=== PATIENT | female | born 1935 | race Caucasian/White ===

== ENCOUNTER 2018-03-19 23:21 | Emergency (ER) | payer MEDICARE, OTHER ==
[~2018-03-19] VITALS: Ht 160 cm; Wt 59.0 kg
[~2018-03-19 23:21] MED LIST: ASPI-484 PO; AZAT50TA PO; BUDE10.2 IH; CARV12.5 PO; DIGO125T PO; GABA100C7 PO; LEVO50TA6 PO; LISI-410 PO; LORA0.5T PO; MELA3TAB2 PO; METH750T94 PO; PANT40TA5 PO; PRED5TAB17 PO; ROSU20TA PO
--- NOTE | 2018-03-19 23:35 | ER.PDOC ---
General Chief Complaint: Extremities Stated Complaint: FALL Time seen by MD: 23:32 Source: patient Exam Limitations: no limitations History of Present Illness Initial Comments Left shoulder pain S/P fall Occurred: just prior to arrival Where: home Severity: moderate Injuries/Pain Location: upper extremity Context: Lost Balance Loss of Consciousness: No Loss of Consciousness Associated Symptoms: denies symptoms Allergies: Coded Allergies: chlorpheniramine (Verified Allergy, Mild, 05/24/16) hydrocodone (Verified Allergy, Mild, 05/24/16) moxifloxacin (Verified Allergy, Mild, 05/24/16) MEDS Reported Medications Pantoprazole Sodium (PANTOPRAZOLE SODIUM) 40 Mg Tablet.dr, 40 MG PO DAILY 05/24/16 Methocarbamol (ROBAXIN-750) 750 Mg Tablet, 750 MG PO Q6 PRN for MUSCLE SPASM, TABLET 05/24/16 Lorazepam (LORAZEPAM) 0.5 Mg Tablet, 0.5 MG PO TID, TABLET 05/24/16 Melatonin (MELATONIN) 3 Mg Tablet, 1 MG PO HS, TABLET 05/24/16 Aspirin (ASPIR 81) 81 Mg Tablet.dr, 1 TAB PO DAILY, #30 TAB 5 Refills 01/24/16 Gabapentin (GABAPENTIN) 100 Mg Capsule, 1 CAP PO DAILY, #90 CAP 2 Refills 01/24/16 Budesonide/Formoterol Fumarate (SYMBICORT 160-4.5 MCG INHALER) 10.2 Gm Hfa.aer.ad, 1 PUFF IH BID, #10.6 GRAM 3 Refills 01/24/16 Rosuvastatin 20MG (CRESTOR 20MG) 20 Mg Tablet, 1 TAB PO DAILY, #30 TAB 5 Refills 01/24/16 Carvedilol 12.5MG (COREG 12.MG) 12.5 Mg Tablet, 1 TAB PO BID, #180 TAB 1 Refill 01/24/16 Azathioprine (AZATHIOPRINE) 50 Mg Tablet, 1 TAB PO BID, #30 TAB 3 Refills 01/24/16 Prednisone (PREDNISONE) 5 Mg Tab.ds.pk, 5 MG PO DAILY 01/24/16 Digoxin (DIGOXIN) 125 Mcg Tablet, 1 TAB PO DAILY, #30 TAB 5 Refills 01/24/16 Lisinopril (LISINOPRIL) 20 Mg Tablet, 1 TAB PO DAILY, #30 TAB 5 Refills 01/24/16 Levothyroxine Sodium (LEVOTHYROXINE SODIUM) 50 Mcg Tablet, 1 TAB PO DAILY, #30 TAB 5 Refills 01/24/16 Past Medical History Surgical History: hysterectomy LMP (females 10-50): hysterectomy Social History Smoking: non-smoker Alcohol Use: none Drug Use: none Review of Systems Constitutional: no symptoms reported Respiratory: no symptoms reported Cardiovascular: no symptoms reported Gastrointestinal: no symptoms reported Genitourinary: no symptoms reported Musculoskeletal: see HPI All Other Systems: Reviewed and Negative Physical Exam General Appearance: No Apparent Distress, WD/WN Head: No Evidence of Injury Neck: Non-Tender, Normal Alignment, Nexus criteria neg, Normal Inspection Cardiovascular/Respiratory: Regular Rate, Rhythm, No M/R/G, Normal Peripheral Pulses, No JVD, Normal Breath Sounds, No Respiratory Distress Gastrointestinal: Normal Bowel Sounds, No Organomegaly, No Pulsatile Mass, Non Tender, Soft Back: Normal Inspection, No CVA Tenderness, No Vertebral Tenderness Extremities: Pain With Movement (left shoulder) 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 Displaced comminuted acute greater tuberosity fracture. Spoke to Dr. Stroud because Dr. Ac is out of town. Patient will be transferred to [facility] ED. Departure Time of Disposition: 00:08 Disposition: 02 XFER [facility] Impression: Primary Impression: Anterior shoulder dislocation Additional Impression: Shoulder fracture, left Condition: Stable Referrals: ROSHAN LOPES (PCP) PRIMARY CARE PROVIDER Comments Transfer to [facility] ED for Dr. Weiss. Duration or Time Spent with Pa: 60 mins Problem Qualifiers Primary Impression: Anterior shoulder dislocation Encounter type: initial encounter Laterality: left Qualified Codes: S43.015A - Anterior dislocation of left humerus, initial encounter Additional Impression: Shoulder fracture, left Encounter type: initial encounter Fracture type: closed Qualified Codes: S42.92XA - Fracture of left shoulder girdle, part unspecified, initial encounter for closed fracture BRANDAN TEMPLE MD Mar 19, 2018 23:35
--- NOTE | 2018-03-19 23:45 | DIREP ---
PROCEDURE:XRAY SHOULDER MIN 2 VWS-LT COMPARISON:None. INDICATIONS:Pain S/P fall FINDINGS: BONES:Lateral image is limited. On the frontal image there is a displaced greater tuberosity fracture. Fragment measures 4 cm in cephalocaudal dimension and 1 cm in transverse dimension. Displacement from the humeral head measures approximately 2 cm. Humeral head overlaps the inferior glenoid consistent with anterior dislocation. JOINTS:Anterior glenohumeral dislocation. SOFT TISSUES:Normal. OTHER:Left chest pacemaker. CONCLUSION:Anterior glenohumeral dislocation. Displaced comminuted acute greater tuberosity fracture. Dictated by: Cirilo Khan M.D. on 03/19/2018 at 11:41 PM
[2018-03-19 23:50] VITALS: BP 220/114
[2018-03-19] MEDS ORDERED: DILAUDID ONE (23:50)
[2018-03-19] MEDS ORDERED: DILAUDID IV STA (23:52)
[2018-03-19] MEDS ORDERED: ZOFRAN ONE (23:53)
[2018-03-19] MEDS ORDERED: ZOFRAN IV STA (23:55)
[2018-03-19 23:57] VITALS: BP 159/101
--- NOTE | 2018-03-19 23:57 | NUR ---
DR. DR. TEMPLE ON PHONE WITH ORTHOPEDIC PHYSICIAN AT THIS TIME AT [facility].
--- NOTE | 2018-03-20 00:13 | NUR ---
EMS DISPATCHED AT THIS TIME FOR TRANSFER TO [facility] [place] [facility]
--- NOTE | 2018-03-20 00:22 | NUR ---
EMS IN DEPARTMENT, REPORT GIVEN PATIENT TRANSFERRED TO [facility] VIA STRETCHER/AMBULANCE
[2018-03-20 00:26] VITALS: BP 159/101
== END 2018-03-20 00:22 | disposition short-term general hospital (02) ==
LOC: EDBD 23:21 → ER 23:21
DX: S42.252A Displaced fracture of greater tuberosity of left humerus, initial encounter for closed fracture (principal); S43.015A Anterior dislocation of left humerus, initial encounter; Z79.899 Other long term (current) drug therapy; Z88.1 Allergy status to other antibiotic agents; Z88.8 Allergy status to other drugs, medicaments and biological substances; W01.0XXA Fall on same level from slipping, tripping and stumbling without subsequent striking against object, initial encounter; Y93.89 Activity, other specified; Y92.090 Kitchen in other non-institutional residence as the place of occurrence of the external cause; Y99.8 Other external cause status
CPT/HCPCS: 73030; 96374; 96375; 99285; J1170; J2405

== ENCOUNTER 2018-05-31 09:55 | Inpatient (IN) | payer MEDICARE, OTHER ==
[~2018-05-31] VITALS: Ht 160 cm; Wt 54.4 kg
[2018-05-31] VITALS (10 sets, daily range): BP systolic 93–247; BP diastolic 54–128
[~2018-05-31 09:55] MED LIST changes: -ROSU20TA PO; +ROSU20TA2 PO
[2018-05-31] MEDS ORDERED: CATAPRES ONE (10:01)
--- NOTE | 2018-05-31 10:02 | ER.PDOC ---
General Chief Complaint: Requesting Medical Care Stated Complaint: FALL Time seen by MD: 09:55 Source: patient, EMS Exam Limitations: no limitations History of Present Illness Initial Comments Pt fell at home and injured lower back, where she is referring pain, able to move legs Occurred: just prior to arrival Where: home Severity: mild Injuries/Pain Location: back Loss of Consciousness: No Loss of Consciousness Associated Symptoms: denies symptoms Allergies: Coded Allergies: chlorpheniramine (Verified Allergy, Mild, 05/24/16) hydrocodone (Verified Allergy, Mild, 05/24/16) moxifloxacin (Verified Allergy, Mild, 05/24/16) MEDS Reported Medications Tramadol Hcl/Acetaminophen (TRAMADOL-ACETAMINOPHN 37.5-325) 1 Each Tablet, 1 EACH PO PRN PRN for PAIN SEVERE, TABLET 05/31/18 Apixaban (Eliquis) 2.5 Mg Tablet, 2.5 MG PO BID, TABLET 05/31/18 Pantoprazole Sodium (PANTOPRAZOLE SODIUM) 40 Mg Tablet.dr, 40 MG PO DAILY 05/24/16 Melatonin (MELATONIN) 3 Mg Tablet, 1 MG PO HS, TABLET 05/24/16 Budesonide/Formoterol Fumarate (SYMBICORT 160-4.5 MCG INHALER) 10.2 Gm Hfa.aer.ad, 1 PUFF IH BID, #10.6 GRAM 3 Refills 01/24/16 Rosuvastatin 20MG (CRESTOR 20MG) 20 Mg Tablet, 1 TAB PO DAILY, #30 TAB 5 Refills 01/24/16 Carvedilol 12.5MG (COREG 12.MG) 12.5 Mg Tablet, 1 TAB PO BID, #180 TAB 1 Refill 01/24/16 Azathioprine (AZATHIOPRINE) 50 Mg Tablet, 1 TAB PO BID, #30 TAB 3 Refills 01/24/16 Prednisone (PREDNISONE) 5 Mg Tab.ds.pk, 5 MG PO DAILY 01/24/16 Lisinopril (LISINOPRIL) 20 Mg Tablet, 1 TAB PO DAILY, #30 TAB 5 Refills 01/24/16 Levothyroxine Sodium (LEVOTHYROXINE SODIUM) 50 Mcg Tablet, 1 TAB PO DAILY, #30 TAB 5 Refills 01/24/16 Discontinued Reported Medications Methocarbamol (ROBAXIN-750) 750 Mg Tablet, 750 MG PO Q6 PRN for MUSCLE SPASM, TABLET 05/24/16 Lorazepam (LORAZEPAM) 0.5 Mg Tablet, 0.5 MG PO TID, TABLET 05/24/16 Aspirin (ASPIR 81) 81 Mg Tablet.dr, 1 TAB PO DAILY, #30 TAB 5 Refills 01/24/16 Gabapentin (GABAPENTIN) 100 Mg Capsule, 1 CAP PO DAILY, #90 CAP 2 Refills 01/24/16 Digoxin (DIGOXIN) 125 Mcg Tablet, 1 TAB PO DAILY, #30 TAB 5 Refills 01/24/16 Past Medical History Surgical History: hysterectomy Social History Drug Use: none Review of Systems Constitutional: no symptoms reported Eyes: no symptoms reported Ears, Nose, Mouth, Throat: no symptoms reported Respiratory: no symptoms reported Cardiovascular: no symptoms reported Gastrointestinal: no symptoms reported Genitourinary: no symptoms reported Musculoskeletal: see HPI Skin: no symptoms reported Psychiatric/Neurological: no symptoms reported Physical Exam General Appearance: No Apparent Distress, WD/WN Head: No Evidence of Injury Eyes: bilateral eye normal inspection Ears, Nose, Mouth, Throat: Hearing Grossly Normal, No Evidence of ENT Injury, No Dental Injury Neck: Non-Tender, Normal Alignment, Nexus criteria neg, Normal Inspection Cardiovascular/Respiratory: Regular Rate, Rhythm, No M/R/G, Normal Peripheral Pulses, No JVD, Normal Breath Sounds, No Respiratory Distress Gastrointestinal: Normal Bowel Sounds, No Organomegaly, No Pulsatile Mass, Non Tender, Soft Back: Normal Inspection, No CVA Tenderness, No Vertebral Tenderness Extremities: Normal Range of Motion, Non-Tender, No Pedal Edema, Other ( abrasions on right thigh) 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 as Tested, No Motor/Sensory Deficits, Alert, Normal Mood/Affect, Oriented x 3 Skin: Other (abrasions) [place] Coma Score Best Eye Response: (4) Open Spontaneously Best Verbal Response: (5) Oriented Best Motor Response: (6) Obeys Commands Results/Orders Results/Orders Orders - PINKY LE MD Ct Lumbar Wo Contrast (05/31/18 09:55) Ct Pelvis Wo Iv Contrast (05/31/18 09:55) Clonidine Hcl (Catapres) (05/31/18 10:01) Clonidine Hcl (Catapres) (05/31/18 10:28) Vital Signs Date Time Temp Pulse Resp B/P (MAP) Pulse Ox O2 Delivery O2 Flow Rate FiO2 4/2/19 10:11 99.0 56 24 247/128 (167) 99 Nasal Canula 3.00 99.0 05/31/18 10:09 24 05/31/18 10:05 99.0 56 24 99 Nasal Canula 99.0 05/31/18 10:05 99.0 56 24 99.0 05/31/18 10:02 73 247/123 Administered Medications Medications (Trade) Dose Ordered Sig/Danna Route PRN Reason Start Time Stop Time Status Last Admin Dose Admin Clonidine (Catapres) 0.2 mg STAT STAT PO 05/31/18 10:28 05/31/18 10:29 DC 05/31/18 10:02 0.2 MG Departure Time of Disposition: 11:40 Disposition: 01 HOME, SELF-CARE Impression: Primary Impression: Lumbar back pain Additional Impression: Lumbar and sacral osteoarthritis Condition: Stable Patient Instructions: Low Back Sprain with Rehab-SportsMed Referrals: ROSHAN OLPES (PCP) PRIMARY CARE PROVIDER Duration or Time Spent with Pa: 20 Problem Qualifiers PINKY LE MD May 31, 2018 10:02
[2018-05-31] MEDS ORDERED: APIX2.5T PO (10:16)
[2018-05-31] MEDS ORDERED: TRAM1TAB PO (10:16)
[2018-05-31] MEDS ORDERED: CATAPRES PO STA (10:28)
--- NOTE | 2018-05-31 11:16 | DIREP ---
PROCEDURE: CT SPINE LUMBAR W/O TECHNIQUE:Axial cuts were obtained through the lumbar spine. The images were viewed at bone settings. COMPARISON:[facility], CT, CT SPINE LUMBAR W/O, 01/24/2016, 01:04 PM. INDICATIONS:low back pain, fall FINDINGS: ALIGNMENT:Normal. VERTEBRAE:Normal. No acute bony abnormalities. PARASPINAL AREA:Normal. OTHER:No additional findings. LUMBAR DISC LEVELS T12-L1:Normal. L1-L2:Normal. L2-L3:Normal. L3-L4:3 mm anterior subluxation of L3 on L4 with severe central canal and moderate bilateral foraminal stenosis. L4-L5:Mild central canal and moderate bilateral foraminal stenosis. Moderate bilateral facet arthropathy with 9 mm anterior subluxation of L4 on L5. L5-S1:Bulging annulus with mild bilateral foraminal stenosis. CONCLUSION:1. Severe central canal and moderate bilateral foraminal stenosis at L3-4. 2. Mild central canal and moderate bilateral foraminal stenosis at L4-5. 3. Mild bilateral foraminal stenosis at L5-S1. 4. These findings are stable when compared with the previous study dated January 24 2016. Dictated by: Tylor Willis M.D. on 05/31/2018 at 09:45 AM
--- NOTE | 2018-05-31 11:30 | DIREP ---
PROCEDURE:CT PELVIS W/O COMPARISON:[facility], CT, CT SPINE LUMBAR W/O, 05/31/2018, 10:16 AM. INDICATIONS:Fall, PAIN WORSE ON LEFT TECHNIQUE:Axial images were created through the pelvis without intravenous contrast material. No oral contrast was administered. Sagittal and coronal reconstructions were performed from source images. FINDINGS: AORTA/VASCULAR:Normal. No aneurysm. RETROPERITONEUM:Normal. No mass or adenopathy. BOWEL/MESENTERY:Mild sigmoid diverticulosis with no diverticulitis. ABDOMINAL WALL:Normal. No mass or hernia. PELVIC ORGANS:Uterus is not visualized and is either extremely atrophic or surgically absent. BONES:No acute fracture. 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 OTHER:Negative. CONCLUSION:1. No acute bony abnormalities. 2. Severe central canal and moderate foramen stenosis at L3-4 with 3 mm anterior subluxation of L3 on L4. 3. Moderate central canal and bilateral foraminal stenosis at L4-5 with 9 mm anterior subluxation of L4 on L5. 4. Mild bilateral foraminal stenosis at L5-S1. 5. Mild sigmoid diverticulosis with no diverticulitis. 6. Uterus is not visualized and is either extremely atrophic or surgically absent. Dictated by: Tylor Willis M.D. on 05/31/2018 at 10:15 AM
[2018-05-31] MEDS ORDERED: TORADOL ONE (12:15)
[2018-05-31] MEDS ORDERED: TORADOL IM STA (12:20)
[2018-05-31] MEDS ORDERED: SOLU-MEDROL IV STA (18:35)
--- NOTE | 2018-05-31 18:38 | PCM.HP ---
HISTORY & PHYSICAL HISTORY & PHYSICAL DATE OF ADMISSION: CHIEF COMPLAINT: 82 yo female admitted for severe low back pain and lumbar radiculopathy / weakness after fall. H&P # [id number] HISTORY OF PRESENT ILLNESS: ALLERGIES: CURRENT MEDICATIONS: PAST MEDICAL HISTORY: SOCIAL HISTORY: FAMILY HISTORY: REVIEW OF SYSTEMS: PHYSICAL EXAMINATION: GENERAL: VITAL SIGNS: HEENT: NECK: LUNGS: HEART: ABDOMEN: EXTREMITIES: NEUROLOGIC: LABORATORY DATA: IMPRESSION: CARE PLAN: MOSES GRACE MD May 31, 2018 18:38
--- NOTE | 2018-05-31 19:37 | DIREP ---
PROCEDURE:CHEST 1 VIEW COMPARISON:[facility], CR, CHEST 2 VIEW, 04/30/2014, 12:20 PM. [facility], CHRISTOPHE, XRAY CHEST 2 VWS, 11/23/2016, 10:34 AM. INDICATIONS:s/p fall FINDINGS: LUNGS/PLEURA:No significant pulmonary parenchymal abnormalities. No effusions. VASCULATURE:Normal. Unremarkable pulmonary vasculature. CARDIAC:Normal. No cardiac silhouette abnormality or cardiomegaly. Left pacemaker. MEDIASTINUM:Atherosclerotic aorta with no visible aneurysm. BONES:Surgical changes of the proximal left humerus. OTHER:Negative. CONCLUSION:No acute process identified. Dictated by: Canelo May MD on 05/31/2018 at 07:35 PM
[2018-05-31] MEDS: NAPROXEN PO SCH (20:26)
--- NOTE | 2018-05-31 20:44 | HPH ---
ADMIT DATE: 05/31/2018 CHIEF COMPLAINT: Low back pain and lower extremity weakness. HISTORY OF PRESENT ILLNESS: This is an 82-year-old female with multiple medical problems including atrial fibrillation and hypotension that presents with low back pain and lower extremity weakness after a fall yesterday. The patient states she was in her usual state of health and tripped on the carpet, landing on her left side and having pain radiating down her low back into both buttocks and both legs. Pain became so severe today that her brought her into the Emergency Department. She has had difficulty ambulating and has had difficulty getting up out of the chair and taking care of her activities of daily living. The patient's was not able to take her home and take care of her. She has also been at [facility] recently over multiple falls and lower extremity weakness. PAST MEDICAL HISTORY: 1. Gout. 2. Irritable bowel syndrome. 3. Hypertension. 4. Congestive heart failure. 5. Atrial fibrillation. 6. Rheumatoid arthritis. 7. Generalized anxiety. 8. Peripheral neuropathy. MEDICATIONS: See admit medication reconciliation form. Medications reviewed. ALLERGIES: CHLORPHENIRAMINE, HYDROCODONE and MOXIFLOXACIN. FAMILY HISTORY: Noncontributory. PAST SURGICAL HISTORY: Hysterectomy. REVIEW OF SYSTEMS: GENERAL: Positive for weakness, fatigue and malaise. CARDIAC: Denies chest pain, orthopnea, PND or palpitations. RESPIRATORY: Denies shortness of breath, cough or congestion. GASTROINTESTINAL: No nausea, vomiting, diarrhea or constipation. GENITOURINARY: Denies dysuria, frequency, hematuria or nocturia. HEMATOLOGIC: No easy bleeding or bruising. ENDOCRINE: No recent weight loss or weight gain. No temperature intolerance. NEUROLOGIC: Denies headache, paresthesias or dizziness. MUSCULOSKELETAL: Pain in the low back and legs as above. PSYCHIATRIC: Denies depression and anxiety. PHYSICAL EXAMINATION: VITAL SIGNS: Blood pressure is 93/54, temp 97.6, pulse 65, respiration 14, O2 sat 93% on room air. GENERAL: She is a well-appearing female, in no acute distress. HEENT: Atraumatic, normocephalic. NECK: Soft, supple. Normal range of motion. LUNGS: Clear to auscultation bilaterally. HEART: Regular rate and rhythm without murmurs, S3 or S4. ABDOMEN: Soft, nontender, nondistended. Positive bowel sounds. No masses felt. EXTREMITIES: Warm and well perfused without evidence of edema, cyanosis or clubbing. NEUROLOGIC: Cranial nerves 2-12 are grossly intact and symmetric. SKIN: Intact. LABORATORY DATA: Pending. ASSESSMENT: 1. Acute low back pain. 2. Lumbar radiculopathy. 3. Lower extremity weakness. 4. Osteoarthritis. 5. Rheumatoid arthritis. 6. Severe central canal and moderate bilateral foraminal stenosis at L3-L4. 7. Multilevel bilateral foraminal stenosis. 8. Gout. PLAN: 1. The patient is admitted to [facility] for further evaluation and management. 2. Start IV corticosteroids as well as muscle relaxers and nonsteroidals. 3. Anti-inflammatory or pain medication as needed. 4. Check urinalysis and laboratory evaluation. 5. Physical and occupational therapy consult. 6. The patient will need further evaluation from [facility] for possible placement. Guillermo Albright MD DR: CANDI/misty JOB# [id number]
[2018-05-31] MEDS: FLEXERIL PO PRN (23:13)
[2018-06-01 00:23] VITALS: BP 144/95
[2018-06-01 04:30] LABS: HEMOGLOBIN 11.3 g/dL (12.0-15.0); MEAN CELL HGB 36.2 pg (26-34); MEAN CELL HGB CONCENTRATION 33.2 g/dL (33-37); MEAN PLATELET VOLUME 10.2 fL (7.8-11.0); RED CELL DISTRIBUTION WIDTH 14.9 % (11.5-14.5); WHITE BLOOD CELL 5.7 10^3/uL (4.5-11.0)
[2018-06-01 04:51] LABS: CALCIUM 9.5 mg/dL (8.4-10.5); CARBON DIOXIDE 26.3 mmol/L (20.0-32)
[2018-06-01 05:24] VITALS: BP 149/86
[2018-06-01 08:00] VITALS: BP 144/91
--- NOTE | 2018-06-01 08:50 | PRM.PN ---
Subjective Subjective Date: Jun 01, 2018 Time: 08:41 Subjective Feeling a little better. Able to sit up slightly without quite as much pain. Still somewhat weak in the LE. No bowel or bladder problems overnight. Patient History: FH: heart disease 32 MOTHER, Onset:60 years & older 33 FATHER, Onset:60 years & older G8 BROTHER, Onset:60 years & older VTE VTE Risk Total Score: >5 VTE Risk Score VTE Risk: Score 0-1 = Low Risk (Aggressive mobilization; early ambulation; no VTE prophylaxis required) Score 2: Moderate Risk (Intermittent/Pneumatic Compression Device OR Lovenox/Heparin/Coumadin) Score 3-4: High Risk (Intermittent/Pneumatic Compression Device AND Lovenox/Heparin/Coumadin) Score > or =5: Highest Risk (Intermittent/Pneumatic Compression Device AND Lovenox/Heparin/Coumadin) Review of Systems Constitutional: No: Fever, Chills, Sweats, Weakness, Malaise, Other Respiratory: No: Cough, Dry, Shortness of breath, SOB with excertion, Wheezing , Hemoptysis, Pleuritic Pain, Sputum, Wheezing, Other Cardiovascular: No: Chest Pain, Palpitations, Orthopnea, Paroxysmal Noc. Dyspnea, Edema, Lt Headedness, Other Gastrointestinal: No: Nausea, Vomiting, Abdominal Pain, Diarrhea, Constipation , Melena, Hematochezia, Other Musculoskeletal: neck pain, back pain Neurological: No: Weakness, Numbness, Incoordination, Change in speech, Confusion, Seizures, Other Allergies: Coded Allergies: chlorpheniramine (Verified Allergy, Mild, 05/24/16) hydrocodone (Verified Allergy, Mild, 05/24/16) moxifloxacin (Verified Allergy, Mild, 05/24/16) Scheduled Apixaban (Eliquis), 2.5 MG PO BID, (Reported) Azathioprine (Azathioprine), 1 TAB PO BID, (Reported) Budesonide/Formoterol Fumarate (Symbicort 160-4.5 Mcg Inhaler), 1 PUFF IH BID, ( Reported) Carvedilol 12.5MG (Coreg 12.MG), 1 TAB PO BID, (Reported) Levothyroxine Sodium (Levothyroxine Sodium), 1 TAB PO DAILY, (Reported) Lisinopril (Lisinopril), 1 TAB PO DAILY, (Reported) Melatonin (Melatonin), 1 MG PO HS, (Reported) Pantoprazole Sodium (Pantoprazole Sodium), 40 MG PO DAILY, (Reported) Prednisone (Prednisone), 5 MG PO DAILY, (Reported) Rosuvastatin 20MG (Crestor 20MG), 1 TAB PO DAILY, (Reported) Scheduled PRN Tramadol Hcl/Acetaminophen (Tramadol-Acetaminophn 37.5-325), 1 EACH PO PRN PRN for PAIN SEVERE, (Reported) Discontinued Medications Aspirin (Aspir 81), 1 TAB PO DAILY, (Reported) Discontinued Reason: Discontinue Digoxin (Digoxin), 1 TAB PO DAILY, (Reported) Discontinued Reason: Discontinue Gabapentin (Gabapentin), 1 CAP PO DAILY, (Reported) Discontinued Reason: Discontinue Lorazepam (Lorazepam), 0.5 MG PO TID, (Reported) Discontinued Reason: Discontinue Methocarbamol (Robaxin-750), 750 MG PO Q6 PRN for MUSCLE SPASM, (Reported) Discontinued Reason: Discontinue Objective Vitals and I/O Vital Sign - Last 24 Hours 05/31/18 05/31/18 05/31/18 05/31/18 10:02 10:05 10:05 10:09 Temp 99.0 99.0 99.0 99.0 Pulse 73 56 56 Resp 24 24 24 B/P (MAP) 247/123 Pulse Ox 99 O2 Delivery Nasal [place] 05/31/18 05/31/18 05/31/18 05/31/18 10:11 10:30 11:00 11:30 Temp 99.0 99.0 Pulse 56 64 78 68 Resp 24 18 17 18 B/P (MAP) 247/128 (167) 206/111 (142) 207/108 (141) 178/98 (124) Pulse Ox 99 97 98 97 O2 Delivery Nasal [place] Room Air Room Air Room Air O2 Flow Rate 3.00 05/31/18 05/31/18 05/31/18 05/31/18 12:00 12:30 13:00 13:30 Pulse 74 74 73 83 Resp 18 17 17 17 B/P (MAP) 164/78 (106) 170/94 (119) 174/96 (122) 168/89 (115) Pulse Ox 97 98 97 98 O2 Delivery Room Air Room Air Room Air Room Air 05/31/18 05/31/18 05/31/18 05/31/18 13:31 16:19 18:08 20:20 Temp 99.0 97.6 98.0 97.6 98.0 Pulse 83 65 62 Resp 17 14 20 B/P (MAP) 93/54 (67) 116/68 (84) Pulse Ox 98 93 91 O2 Delivery Room Air Room Air Room Air Room Air 06/01/18 06/01/18 06/01/18 00:23 02:24 05:24 Temp 97.5 98.0 97.5 98.0 Pulse 62 65 Resp 20 20 B/P (MAP) 144/95 (111) 149/86 (107) Pulse Ox 96 96 O2 Delivery Nasal [place] Room Air Nasal [place] O2 Flow Rate 2.00 2.00 Intake and Output 05/31/18 05/31/18 06/01/18 15:00 23:00 07:00 Intake Total 300 ml Output Total 300 ml 300 ml Balance -300 ml 0 ml General: Alert, Oriented X3, Cooperative, No acute distress Lungs: Clear to auscultation Heart: Regular rate, Normal S1, Normal S2, No murmurs Abdomen: Normal bowel sounds, Soft, No tenderness, No masses Extremities: No clubbing, No cyanosis, No edema, Normal pulses, No tenderness/ swelling Neuro: Normal gait, Normal speech, Strength at 5/5 X4 ext, Normal tone, Sensation intact All Results(Lab/Rad) Laboratory Tests Test 06/01/18 04:16 White Blood Count 5.7 10^3/uL Red Blood Count 3.12 10^6/uL Hemoglobin 11.3 g/dL Hematocrit 34.0 % Mean Corpuscular Volume 109.0 fL Mean Corpuscular Hemoglobin 36.2 pg Mean Corpuscular Hemoglobin Concent 33.2 g/dL Red Cell Distribution Width 14.9 % Platelet Count 188 10^3/uL Mean Platelet Volume 10.2 fL Sodium Level 141 mmol/L Potassium Level 4.3 mmol/L Chloride Level 105.0 mmol/L Carbon Dioxide Level 26.3 mmol/L Anion Gap 14.0 Blood Urea Nitrogen 19 mg/dL Creatinine 0.79 mg/dL Estimated GFR () 84.5 BUN/Creatinine Ratio 24.0 Glucose Level 121 mg/dL Calcium Level 9.5 mg/dL Total Bilirubin 0.6 mg/dL Aspartate Amino Transf (AST/SGOT) 14 U/L Alanine Aminotransferase (ALT/SGPT) 14 U/L Alkaline Phosphatase 41 U/L Total Protein 6.2 g/dL Albumin 3.1 g/dL Globulin 3.1 Thyroid Stimulating Hormone (TSH) 0.588 mIU/mL Current Medications Medications (Trade) Dose Ordered Sig/Danna Route PRN Reason Start Time Stop Time Status Last Admin Dose Admin Clonidine (Catapres) 0.2 mg STK-MED ONCE .ROUTE 05/31/18 10:01 05/31/18 10:02 DC Clonidine (Catapres) 0.2 mg STAT STAT PO 05/31/18 10:28 05/31/18 10:29 DC 05/31/18 10:02 Ketorolac Tromethamine (Toradol) 30 mg STK-MED ONCE .ROUTE 05/31/18 12:15 05/31/18 12:17 DC Ketorolac Tromethamine (Toradol) 30 mg STAT STAT IM 05/31/18 12:20 05/31/18 12:21 DC 05/31/18 12:23 Methylprednisolone Sodium Succinate (Solu-Medrol) 60 mg Q6 STAT IV 05/31/18 18:35 05/31/18 20:15 DC 05/31/18 19:22 Naproxen (Naproxen) 500 mg BID PO 05/31/18 21:00 06/30/18 20:59 05/31/18 20:26 Cyclobenzaprine HCl (Flexeril) 10 mg Q8 PRN PO MUSCLE SPASM 05/31/18 19:00 06/30/18 18:59 05/31/18 23:13 Tramadol HCl (Ultram) 50 mg Q4HR PRN PO PAIN 4 - 6 05/31/18 19:00 06/30/18 18:59 Pantoprazole Sodium (Protonix) 40 mg DAILY PO 06/01/18 09:00 07/01/18 08:59 Methylprednisolone Sodium Succinate (Solu-Medrol) 60 mg Q6HR IV 06/01/18 09:00 07/01/18 08:59 Course Sepsis Screening Results: Posi: NEGATIVE Sepsis Qualifier/Stage: NO DEFINITE RISK Duration or Total Time Spent w: 20 Vitals & review Data Vital Sign - Last 24 Hours 05/31/18 05/31/18 05/31/18 05/31/18 10:02 10:05 10:05 10:09 Temp 99.0 99.0 99.0 99.0 Pulse 73 56 56 Resp 24 24 24 B/P (MAP) 247/123 Pulse Ox 99 O2 Delivery Nasal [place] 05/31/18 05/31/18 05/31/18 05/31/18 10:11 10:30 11:00 11:30 Temp 99.0 99.0 Pulse 56 64 78 68 Resp 24 18 17 18 B/P (MAP) 247/128 (167) 206/111 (142) 207/108 (141) 178/98 (124) Pulse Ox 99 97 98 97 O2 Delivery Nasal [place] Room Air Room Air Room Air O2 Flow Rate 3.00 05/31/18 05/31/18 05/31/18 05/31/18 12:00 12:30 13:00 13:30 Pulse 74 74 73 83 Resp 18 17 17 17 B/P (MAP) 164/78 (106) 170/94 (119) 174/96 (122) 168/89 (115) Pulse Ox 97 98 97 98 O2 Delivery Room Air Room Air Room Air Room Air 05/31/18 05/31/18 05/31/18 05/31/18 13:31 16:19 18:08 20:20 Temp 99.0 97.6 98.0 97.6 98.0 Pulse 83 65 62 Resp 17 14 20 B/P (MAP) 93/54 (67) 116/68 (84) Pulse Ox 98 93 91 O2 Delivery Room Air Room Air Room Air Room Air 06/01/18 06/01/18 06/01/18 00:23 02:24 05:24 Temp 97.5 98.0 97.5 98.0 Pulse 62 65 Resp 20 20 B/P (MAP) 144/95 (111) 149/86 (107) Pulse Ox 96 96 O2 Delivery Nasal [place] Room Air Nasal [place] O2 Flow Rate 2.00 2.00 Intake and Output 05/31/18 05/31/18 06/01/18 15:00 23:00 07:00 Intake Total 300 ml Output Total 300 ml 300 ml Balance -300 ml 0 ml Laboratory Tests Test 06/01/18 04:16 White Blood Count 5.7 10^3/uL Red Blood Count 3.12 10^6/uL Hemoglobin 11.3 g/dL Hematocrit 34.0 % Mean Corpuscular Volume 109.0 fL Mean Corpuscular Hemoglobin 36.2 pg Mean Corpuscular Hemoglobin Concent 33.2 g/dL Red Cell Distribution Width 14.9 % Platelet Count 188 10^3/uL Mean Platelet Volume 10.2 fL Sodium Level 141 mmol/L Potassium Level 4.3 mmol/L Chloride Level 105.0 mmol/L Carbon Dioxide Level 26.3 mmol/L Anion Gap 14.0 Blood Urea Nitrogen 19 mg/dL Creatinine 0.79 mg/dL Estimated GFR () 84.5 BUN/Creatinine Ratio 24.0 Glucose Level 121 mg/dL Calcium Level 9.5 mg/dL Total Bilirubin 0.6 mg/dL Aspartate Amino Transf (AST/SGOT) 14 U/L Alanine Aminotransferase (ALT/SGPT) 14 U/L Alkaline Phosphatase 41 U/L Total Protein 6.2 g/dL Albumin 3.1 g/dL Globulin 3.1 Thyroid Stimulating Hormone (TSH) 0.588 mIU/mL Current Medications Medications (Trade) Dose Ordered Sig/Danna PRN Reason Start Time Stop Time Status Last Admin Cyclobenzaprine HCl (Flexeril) 10 mg Q8 PRN MUSCLE SPASM 05/31/18 19:00 06/30/18 18:59 05/31/18 23:13 Methylprednisolone Sodium Succinate (Solu-Medrol) 60 mg Q6HR 06/01/18 09:00 07/01/18 08:59 Naproxen (Naproxen) 500 mg BID 05/31/18 21:00 06/30/18 20:59 05/31/18 20:26 Pantoprazole Sodium (Protonix) 40 mg DAILY 06/01/18 09:00 07/01/18 08:59 Tramadol HCl (Ultram) 50 mg Q4HR PRN PAIN 4 - 6 05/31/18 19:00 06/30/18 18:59 Sepsis Infection Criteria Pres: None O2 Sat by Pulse Oximetry: 96 Oxygen Flow Rate: 2.00 Assessment/Plan Assessment/Plan Assessment/Plan 1.) Severe Low Back Pain - CT does not show any new problem. Likely severe low back muscular sprain and spams. - Slightly improved with IV Corticosteroids and muscle relaxer. - PT/OT today. - Hopefully home later today. 2.) LE Weakness - Mostly secondary to pain. - Continue any restorative therapy with PT. - Recommend current medical regimen once she gets home. 3.) Lumbar Spinal Stenosis - Unchanged but contributing to her acute on chronic pain. - Continue same meds as outlined above. 4.) Lupus - Stable on Prednisone and Azithioprine. MOSES GRACE MD Jun 01, 2018 08:50
[2018-06-01] MEDS ORDERED: PROTONIX PO SCH (09:00)
[2018-06-01] MEDS: BROVANA IH SCH ×2 (09:00→20:01)
[2018-06-01] MEDS: PULMICORT IH SCH ×2 (09:00→20:01)
[2018-06-01] MEDS: COREG PO SCH ×3 (10:00→21:08)
[2018-06-01] MEDS: IMURAN PO SCH ×3 (10:00→21:07)
[2018-06-01] MEDS: ELIQUIS PO SCH ×3 (10:00→21:07)
[2018-06-01] MEDS: SYNTHROID PO SCH ×2 (10:00→10:04)
[2018-06-01] MEDS: SOLU-MEDROL IV SCH ×5 (10:00→23:08)
[2018-06-01] MEDS: ZESTRIL PO SCH ×2 (10:00→10:05)
[2018-06-01] MEDS: LIPITOR PO SCH ×2 (10:00→10:04)
[2018-06-01] MEDS: NAPROXEN PO SCH ×2 (10:04→21:07)
[2018-06-01] MEDS: FLEXERIL PO PRN ×2 (10:04→18:17)
[2018-06-01] MEDS: PROTONIX PO SCH (10:05)
[2018-06-01 10:39] LABS: BILIRUBIN,URINE NEGATIVE (NEGATIVE); UROBILINOGEN,URINE NORMAL (NEGATIVE)
[2018-06-01 10:47] LABS: APPEARANCE,URINE CLEAR (CLEAR); UA COLOR YELLOW (YELLOW)
[2018-06-01 12:00] VITALS: BP 138/85
[2018-06-01] MEDS: ULTRAM PO PRN ×2 (12:18→23:09)
[2018-06-01 16:15] VITALS: BP 153/96
[2018-06-01] MEDS ORDERED: LACTATED RINGERS 1,000 ML ONE (19:41)
[2018-06-01 20:00] VITALS: BP 161/92
[2018-06-02 00:40] VITALS: BP 156/102
[2018-06-02] MEDS: SOLU-MEDROL IV SCH (05:26)
[2018-06-02] MEDS: SYNTHROID PO SCH (05:26)
[2018-06-02 05:30] VITALS: BP 175/112
[2018-06-02] MEDS: COREG PO SCH ×2 (05:46→09:36)
[2018-06-02] MEDS: ZESTRIL PO SCH ×2 (05:46→09:36)
[2018-06-02] MEDS: FLEXERIL PO PRN ×2 (05:46→16:33)
[2018-06-02 08:00] VITALS: BP 193/107
[2018-06-02] MEDS: BROVANA IH SCH ×2 (08:25→20:09)
[2018-06-02] MEDS: PULMICORT IH SCH ×2 (08:26→20:09)
--- NOTE | 2018-06-02 08:38 | PRM.PN ---
Subjective Subjective Date: Jun 02, 2018 Time: 08:34 Subjective Feeling a little worse today. Pain worse with sitting up or standing. Less mobile and more stiff today. Still somewhat weak in the LE. No bowel or bladder problems overnight. No other events overnight. Patient History: FH: heart disease 32 MOTHER, Onset:60 years & older 33 FATHER, Onset:60 years & older G8 BROTHER, Onset:60 years & older VTE VTE Risk Total Score: >5 VTE Risk Score VTE Risk: Score 0-1 = Low Risk (Aggressive mobilization; early ambulation; no VTE prophylaxis required) Score 2: Moderate Risk (Intermittent/Pneumatic Compression Device OR Lovenox/Heparin/Coumadin) Score 3-4: High Risk (Intermittent/Pneumatic Compression Device AND Lovenox/Heparin/Coumadin) Score > or =5: Highest Risk (Intermittent/Pneumatic Compression Device AND Lovenox/Heparin/Coumadin) Review of Systems Constitutional: No: Fever, Chills, Sweats, Weakness, Malaise, Other Respiratory: No: Cough, Dry, Shortness of breath, SOB with excertion, Wheezing , Hemoptysis, Pleuritic Pain, Sputum, Wheezing, Other Cardiovascular: No: Chest Pain, Palpitations, Orthopnea, Paroxysmal Noc. Dyspnea, Edema, Lt Headedness, Other Gastrointestinal: No: Nausea, Vomiting, Abdominal Pain, Diarrhea, Constipation , Melena, Hematochezia, Other Musculoskeletal: neck pain, back pain Neurological: No: Weakness, Numbness, Incoordination, Change in speech, Confusion, Seizures, Other Allergies: Coded Allergies: chlorpheniramine (Verified Allergy, Mild, 05/24/16) hydrocodone (Verified Allergy, Mild, 05/24/16) moxifloxacin (Verified Allergy, Mild, 05/24/16) Scheduled Apixaban (Eliquis), 2.5 MG PO BID, (Reported) Azathioprine (Azathioprine), 1 TAB PO BID, (Reported) Budesonide/Formoterol Fumarate (Symbicort 160-4.5 Mcg Inhaler), 1 PUFF IH BID, ( Reported) Carvedilol 12.5MG (Coreg 12.MG), 1 TAB PO BID, (Reported) Levothyroxine Sodium (Levothyroxine Sodium), 1 TAB PO DAILY, (Reported) Lisinopril (Lisinopril), 1 TAB PO DAILY, (Reported) Melatonin (Melatonin), 1 MG PO HS, (Reported) Pantoprazole Sodium (Pantoprazole Sodium), 40 MG PO DAILY, (Reported) Prednisone (Prednisone), 5 MG PO DAILY, (Reported) Rosuvastatin 20MG (Crestor 20MG), 1 TAB PO DAILY, (Reported) Scheduled PRN Tramadol Hcl/Acetaminophen (Tramadol-Acetaminophn 37.5-325), 1 EACH PO PRN PRN for PAIN SEVERE, (Reported) Discontinued Medications Aspirin (Aspir 81), 1 TAB PO DAILY, (Reported) Discontinued Reason: Discontinue Digoxin (Digoxin), 1 TAB PO DAILY, (Reported) Discontinued Reason: Discontinue Gabapentin (Gabapentin), 1 CAP PO DAILY, (Reported) Discontinued Reason: Discontinue Lorazepam (Lorazepam), 0.5 MG PO TID, (Reported) Discontinued Reason: Discontinue Methocarbamol (Robaxin-750), 750 MG PO Q6 PRN for MUSCLE SPASM, (Reported) Discontinued Reason: Discontinue Objective Vitals and I/O Vital Sign - Last 24 Hours 05/31/18 05/31/18 05/31/18 05/31/18 10:02 10:05 10:05 10:09 Temp 99.0 99.0 99.0 99.0 Pulse 73 56 56 Resp 24 24 24 B/P (MAP) 247/123 Pulse Ox 99 O2 Delivery Nasal [place] 05/31/18 05/31/18 05/31/18 05/31/18 10:11 10:30 11:00 11:30 Temp 99.0 99.0 Pulse 56 64 78 68 Resp 24 18 17 18 B/P (MAP) 247/128 (167) 206/111 (142) 207/108 (141) 178/98 (124) Pulse Ox 99 97 98 97 O2 Delivery Nasal [place] Room Air Room Air Room Air O2 Flow Rate 3.00 05/31/18 05/31/18 05/31/18 05/31/18 12:00 12:30 13:00 13:30 Pulse 74 74 73 83 Resp 18 17 17 17 B/P (MAP) 164/78 (106) 170/94 (119) 174/96 (122) 168/89 (115) Pulse Ox 97 98 97 98 O2 Delivery Room Air Room Air Room Air Room Air 405/31/18 05/31/18 05/31/18 13:31 16:19 18:08 20:20 Temp 99.0 97.6 98.0 97.6 98.0 Pulse 83 65 62 Resp 17 14 20 B/P (MAP) 93/54 (67) 116/68 (84) Pulse Ox 98 93 91 O2 Delivery Room Air Room Air Room Air Room Air 06/01/18 06/01/18 06/01/18 00:23 02:24 05:24 Temp 97.5 98.0 97.5 98.0 Pulse 62 65 Resp 20 20 B/P (MAP) 144/95 (111) 149/86 (107) Pulse Ox 96 96 O2 Delivery Nasal [place] Room Air Nasal [place] O2 Flow Rate 2.00 2.00 Intake and Output 05/31/18 05/31/18 06/01/18 15:00 23:00 07:00 Intake Total 300 ml Output Total 300 ml 300 ml Balance -300 ml 0 ml General: Alert, Oriented X3, Cooperative, No acute distress Lungs: Clear to auscultation Heart: Regular rate, Normal S1, Normal S2, No murmurs Abdomen: Normal bowel sounds, Soft, No tenderness, No masses Extremities: No clubbing, No cyanosis, No edema, Normal pulses, No tenderness/ swelling Neuro: Normal gait, Normal speech, Strength at 5/5 X4 ext, Normal tone, Sensation intact All Results(Lab/Rad) Laboratory Tests Test 06/01/18 04:16 White Blood Count 5.7 10^3/uL Red Blood Count 3.12 10^6/uL Hemoglobin 11.3 g/dL Hematocrit 34.0 % Mean Corpuscular Volume 109.0 fL Mean Corpuscular Hemoglobin 36.2 pg Mean Corpuscular Hemoglobin Concent 33.2 g/dL Red Cell Distribution Width 14.9 % Platelet Count 188 10^3/uL Mean Platelet Volume 10.2 fL Sodium Level 141 mmol/L Potassium Level 4.3 mmol/L Chloride Level 105.0 mmol/L Carbon Dioxide Level 26.3 mmol/L Anion Gap 14.0 Blood Urea Nitrogen 19 mg/dL Creatinine 0.79 mg/dL Estimated GFR () 84.5 BUN/Creatinine Ratio 24.0 Glucose Level 121 mg/dL Calcium Level 9.5 mg/dL Total Bilirubin 0.6 mg/dL Aspartate Amino Transf (AST/SGOT) 14 U/L Alanine Aminotransferase (ALT/SGPT) 14 U/L Alkaline Phosphatase 41 U/L Total Protein 6.2 g/dL Albumin 3.1 g/dL Globulin 3.1 Thyroid Stimulating Hormone (TSH) 0.588 mIU/mL Current Medications Medications (Trade) Dose Ordered Sig/Danna Route PRN Reason Start Time Stop Time Status Last Admin Dose Admin Clonidine (Catapres) 0.2 mg STK-MED ONCE .ROUTE 05/31/18 10:01 05/31/18 10:02 DC Clonidine (Catapres) 0.2 mg STAT STAT PO 05/31/18 10:28 05/31/18 10:29 DC 05/31/18 10:02 Ketorolac Tromethamine (Toradol) 30 mg STK-MED ONCE .ROUTE 05/31/18 12:15 05/31/18 12:17 DC Ketorolac Tromethamine (Toradol) 30 mg STAT STAT IM 05/31/18 12:20 05/31/18 12:21 DC 05/31/18 12:23 Methylprednisolone Sodium Succinate (Solu-Medrol) 60 mg Q6 STAT IV 05/31/18 18:35 05/31/18 20:15 DC 05/31/18 19:22 Naproxen (Naproxen) 500 mg BID PO 05/31/18 21:00 06/30/18 20:59 05/31/18 20:26 Cyclobenzaprine HCl (Flexeril) 10 mg Q8 PRN PO MUSCLE SPASM 05/31/18 19:00 06/30/18 18:59 05/31/18 23:13 Tramadol HCl (Ultram) 50 mg Q4HR PRN PO PAIN 4 - 6 05/31/18 19:00 06/30/18 18:59 Pantoprazole Sodium (Protonix) 40 mg DAILY PO 06/01/18 09:00 07/01/18 08:59 Methylprednisolone Sodium Succinate (Solu-Medrol) 60 mg Q6HR IV 06/01/18 09:00 07/01/18 08:59 Course Sepsis Screening Results: Posi: NEGATIVE Sepsis Qualifier/Stage: NO DEFINITE RISK Duration or Total Time Spent w: 20 Vitals & review Data Vital Sign - Last 24 Hours 05/31/18 05/31/18 05/31/182/19 10:02 10:05 10:05 10:09 Temp 99.0 99.0 99.0 99.0 Pulse 73 56 56 Resp 24 24 24 B/P (MAP) 247/123 Pulse Ox 99 O2 Delivery Nasal [place] 05/31/18 05/31/18 05/31/18 05/31/18 10:11 10:30 11:00 11:30 Temp 99.0 99.0 Pulse 56 64 78 68 Resp 24 18 17 18 B/P (MAP) 247/128 (167) 206/111 (142) 207/108 (141) 178/98 (124) Pulse Ox 99 97 98 97 O2 Delivery Nasal [place] Room Air Room Air Room Air O2 Flow Rate 3.00 05/31/18 05/31/18 05/31/18 05/31/18 12:00 12:30 13:00 13:30 Pulse 74 74 73 83 Resp 18 17 17 17 B/P (MAP) 164/78 (106) 170/94 (119) 174/96 (122) 168/89 (115) Pulse Ox 97 98 97 98 O2 Delivery Room Air Room Air Room Air Room Air 05/31/18 05/31/18 05/31/18 05/31/18 13:31 16:19 18:08 20:20 Temp 99.0 97.6 98.0 97.6 98.0 Pulse 83 65 62 Resp 17 14 20 B/P (MAP) 93/54 (67) 116/68 (84) Pulse Ox 98 93 91 O2 Delivery Room Air Room Air Room Air Room Air 06/01/18 06/01/18 06/01/18 00:23 02:24 05:24 Temp 97.5 98.0 97.5 98.0 Pulse 62 65 Resp 20 20 B/P (MAP) 144/95 (111) 149/86 (107) Pulse Ox 96 96 O2 Delivery Nasal [place] Room Air Nasal [place] O2 Flow Rate 2.00 2.00 Intake and Output 05/31/18 05/31/18 06/01/18 15:00 23:00 07:00 Intake Total 300 ml Output Total 300 ml 300 ml Balance -300 ml 0 ml Laboratory Tests Test 06/01/18 04:16 White Blood Count 5.7 10^3/uL Red Blood Count 3.12 10^6/uL Hemoglobin 11.3 g/dL Hematocrit 34.0 % Mean Corpuscular Volume 109.0 fL Mean Corpuscular Hemoglobin 36.2 pg Mean Corpuscular Hemoglobin Concent 33.2 g/dL Red Cell Distribution Width 14.9 % Platelet Count 188 10^3/uL Mean Platelet Volume 10.2 fL Sodium Level 141 mmol/L Potassium Level 4.3 mmol/L Chloride Level 105.0 mmol/L Carbon Dioxide Level 26.3 mmol/L Anion Gap 14.0 Blood Urea Nitrogen 19 mg/dL Creatinine 0.79 mg/dL Estimated GFR () 84.5 BUN/Creatinine Ratio 24.0 Glucose Level 121 mg/dL Calcium Level 9.5 mg/dL Total Bilirubin 0.6 mg/dL Aspartate Amino Transf (AST/SGOT) 14 U/L Alanine Aminotransferase (ALT/SGPT) 14 U/L Alkaline Phosphatase 41 U/L Total Protein 6.2 g/dL Albumin 3.1 g/dL Globulin 3.1 Thyroid Stimulating Hormone (TSH) 0.588 mIU/mL Current Medications Medications (Trade) Dose Ordered Sig/Danna PRN Reason Start Time Stop Time Status Last Admin Cyclobenzaprine HCl (Flexeril) 10 mg Q8 PRN MUSCLE SPASM 05/31/18 19:00 06/30/18 18:59 05/31/18 23:13 Methylprednisolone Sodium Succinate (Solu-Medrol) 60 mg Q6HR 06/01/18 09:00 07/01/18 08:59 Naproxen (Naproxen) 500 mg BID 05/31/18 21:00 06/30/18 20:59 05/31/18 20:26 Pantoprazole Sodium (Protonix) 40 mg DAILY 06/01/18 09:00 07/01/18 08:59 Tramadol HCl (Ultram) 50 mg Q4HR PRN PAIN 4 - 6 05/31/18 19:00 06/30/18 18:59 Sepsis Infection Criteria Pres: None LEVEL 2-SIRS (LIST ALL THAT AP: None/Not assessed O2 Sat by Pulse Oximetry: 96 Oxygen Flow Rate: 2.00 Assessment/Plan Assessment/Plan Assessment/Plan 1.) Severe Low Back Pain - CT does not show any new problem. Likely severe low back muscular sprain and spams. - Slightly improved with IV Corticosteroids and muscle relaxer. - PT/OT today. - Not able to take care of independently managing ADL's or ambulating,, so will need prison for an undetermined amount of time as her cannot take care of her either. 2.) LE Weakness - Mostly secondary to pain. - Continue any restorative therapy with PT. - Recommend current medical regimen once she gets home. - Will need home health when she does get home. 3.) Lumbar Spinal Stenosis - Unchanged but contributing to her acute on chronic pain. - Continue same meds as outlined above. 4.) Lupus - Stable on Prednisone and Azithioprine. 5.) HTN - Numbers quite high despite her normal regimen. - Increase Lisinopril and add bid Clonidine. Plan MOSES GRACE MD Jun 02, 2018 08:38
[2018-06-02] MEDS: LIPITOR PO SCH (09:35)
[2018-06-02] MEDS: IMURAN PO SCH ×2 (09:36→21:06)
[2018-06-02] MEDS: ELIQUIS PO SCH ×2 (09:36→21:07)
[2018-06-02] MEDS: NAPROXEN PO SCH ×2 (09:37→21:05)
[2018-06-02] MEDS: PROTONIX PO SCH (09:37)
[2018-06-02] MEDS: ULTRAM PO PRN ×3 (09:38→21:10)
[2018-06-02 12:22] VITALS: BP 149/89
[2018-06-02 17:36] VITALS: BP 150/88
[2018-06-02 20:23] VITALS: BP 160/90
[2018-06-02] MEDS ORDERED: COREG PO ONE (21:00)
[2018-06-03 00:37] VITALS: BP 165/88
[2018-06-03 04:06] VITALS: BP 175/95
[2018-06-03] MEDS: COREG PO SCH (04:09)
[2018-06-03 04:57] LABS: HEMOGLOBIN 12.5 g/dL (12.0-15.0); MEAN CELL HGB 36.4 pg (26-34); MEAN CELL HGB CONCENTRATION 33.4 g/dL (33-37); MEAN PLATELET VOLUME 10.5 fL (7.8-11.0); RED CELL DISTRIBUTION WIDTH 14.9 % (11.5-14.5); WHITE BLOOD CELL 12.1 10^3/uL (4.5-11.0)
[2018-06-03 05:17] LABS: CALCIUM 9.7 mg/dL (8.4-10.5); CARBON DIOXIDE 26.4 mmol/L (20.0-32)
[2018-06-03] MEDS: SYNTHROID PO SCH (06:08)
[2018-06-03] MEDS: BROVANA IH SCH (09:16)
[2018-06-03] MEDS: PULMICORT IH SCH (09:17)
[2018-06-03 09:48] VITALS: BP 155/99
[2018-06-03] MEDS: LIPITOR PO SCH (09:50)
--- NOTE | 2018-06-03 09:51 | PRM.PN ---
Subjective Subjective Date: Jun 03, 2018 Time: 09:50 Subjective Doing ok. Pain still significant, especially if getting up. No radiation currently. No bowel or bladder issues. Feels weak overall but mostly from being in bed. Patient History: FH: heart disease 32 MOTHER, Onset:60 years & older 33 FATHER, Onset:60 years & older G8 BROTHER, Onset:60 years & older VTE VTE Risk Total Score: >5 VTE Risk Score VTE Risk: Score 0-1 = Low Risk (Aggressive mobilization; early ambulation; no VTE prophylaxis required) Score 2: Moderate Risk (Intermittent/Pneumatic Compression Device OR Lovenox/Heparin/Coumadin) Score 3-4: High Risk (Intermittent/Pneumatic Compression Device AND Lovenox/Heparin/Coumadin) Score > or =5: Highest Risk (Intermittent/Pneumatic Compression Device AND Lovenox/Heparin/Coumadin) Review of Systems Constitutional: No: Fever, Chills, Sweats, Weakness, Malaise, Other Respiratory: No: Cough, Dry, Shortness of breath, SOB with excertion, Wheezing , Hemoptysis, Pleuritic Pain, Sputum, Wheezing, Other Cardiovascular: No: Chest Pain, Palpitations, Orthopnea, Paroxysmal Noc. Dyspnea, Edema, Lt Headedness, Other Gastrointestinal: No: Nausea, Vomiting, Abdominal Pain, Diarrhea, Constipation , Melena, Hematochezia, Other Musculoskeletal: neck pain, back pain Neurological: No: Weakness, Numbness, Incoordination, Change in speech, Confusion, Seizures, Other Allergies: Coded Allergies: chlorpheniramine (Verified Allergy, Mild, 05/24/16) hydrocodone (Verified Allergy, Mild, 05/24/16) moxifloxacin (Verified Allergy, Mild, 05/24/16) Scheduled Apixaban (Eliquis), 2.5 MG PO BID, (Reported) Azathioprine (Azathioprine), 1 TAB PO BID, (Reported) Budesonide/Formoterol Fumarate (Symbicort 160-4.5 Mcg Inhaler), 1 PUFF IH BID, ( Reported) Carvedilol 12.5MG (Coreg 12.MG), 1 TAB PO BID, (Reported) Levothyroxine Sodium (Levothyroxine Sodium), 1 TAB PO DAILY, (Reported) Lisinopril (Lisinopril), 1 TAB PO DAILY, (Reported) Melatonin (Melatonin), 1 MG PO HS, (Reported) Pantoprazole Sodium (Pantoprazole Sodium), 40 MG PO DAILY, (Reported) Prednisone (Prednisone), 5 MG PO DAILY, (Reported) Rosuvastatin 20MG (Crestor 20MG), 1 TAB PO DAILY, (Reported) Scheduled PRN Tramadol Hcl/Acetaminophen (Tramadol-Acetaminophn 37.5-325), 1 EACH PO PRN PRN for PAIN SEVERE, (Reported) Discontinued Medications Aspirin (Aspir 81), 1 TAB PO DAILY, (Reported) Discontinued Reason: Discontinue Digoxin (Digoxin), 1 TAB PO DAILY, (Reported) Discontinued Reason: Discontinue Gabapentin (Gabapentin), 1 CAP PO DAILY, (Reported) Discontinued Reason: Discontinue Lorazepam (Lorazepam), 0.5 MG PO TID, (Reported) Discontinued Reason: Discontinue Methocarbamol (Robaxin-750), 750 MG PO Q6 PRN for MUSCLE SPASM, (Reported) Discontinued Reason: Discontinue Objective Vitals and I/O Vital Sign - Last 24 Hours 05/31/18 05/31/18 05/31/18 05/31/18 10:02 10:05 10:05 10:09 Temp 99.0 99.0 99.0 99.0 Pulse 73 56 56 Resp 24 24 24 B/P (MAP) 247/123 Pulse Ox 99 O2 Delivery Nasal Canula 05/31/18 05/31/18 05/31/18 05/31/18 10:11 10:30 11:00 11:30 Temp 99.0 99.0 Pulse 56 64 78 68 Resp 24 18 17 18 B/P (MAP) 247/128 (167) 206/111 (142) 207/108 (141) 178/98 (124) Pulse Ox 99 97 98 97 O2 Delivery Nasal Canula Room Air Room Air Room Air O2 Flow Rate 3.00 05/31/18 05/31/18 05/31/18 05/31/18 12:00 12:30 13:00 13:30 Pulse 74 74 73 83 Resp 18 17 17 17 B/P (MAP) 164/78 (106) 170/94 (119) 174/96 (122) 168/89 (115) Pulse Ox 97 98 97 98 O2 Delivery Room Air Room Air Room Air Room Air 05/31/18 05/31/18 05/31/1805/31/19 13:31 16:19 18:08 20:20 Temp 99.0 97.6 98.0 97.6 98.0 Pulse 83 65 62 Resp 17 14 20 B/P (MAP) 93/54 (67) 116/68 (84) Pulse Ox 98 93 91 O2 Delivery Room Air Room Air Room Air Room Air 06/01/18 06/01/18 06/01/18 00:23 02:24 05:24 Temp 97.5 98.0 97.5 98.0 Pulse 62 65 Resp 20 20 B/P (MAP) 144/95 (111) 149/86 (107) Pulse Ox 96 96 O2 Delivery Nasal Canula Room Air Nasal Canula O2 Flow Rate 2.00 2.00 Intake and Output 05/31/18 05/31/18 06/01/18 15:00 23:00 07:00 Intake Total 300 ml Output Total 300 ml 300 ml Balance -300 ml 0 ml General: Alert, Oriented X3, Cooperative, No acute distress Lungs: Clear to auscultation Heart: Regular rate, Normal S1, Normal S2, No murmurs Abdomen: Normal bowel sounds, Soft, No tenderness, No masses Extremities: No clubbing, No cyanosis, No edema, Normal pulses, No tenderness/ swelling Neuro: Normal gait, Normal speech, Strength at 5/5 X4 ext, Normal tone, Sensation intact All Results(Lab/Rad) Laboratory Tests Test 06/01/18 04:16 White Blood Count 5.7 10^3/uL Red Blood Count 3.12 10^6/uL Hemoglobin 11.3 g/dL Hematocrit 34.0 % Mean Corpuscular Volume 109.0 fL Mean Corpuscular Hemoglobin 36.2 pg Mean Corpuscular Hemoglobin Concent 33.2 g/dL Red Cell Distribution Width 14.9 % Platelet Count 188 10^3/uL Mean Platelet Volume 10.2 fL Sodium Level 141 mmol/L Potassium Level 4.3 mmol/L Chloride Level 105.0 mmol/L Carbon Dioxide Level 26.3 mmol/L Anion Gap 14.0 Blood Urea Nitrogen 19 mg/dL Creatinine 0.79 mg/dL Estimated GFR () 84.5 BUN/Creatinine Ratio 24.0 Glucose Level 121 mg/dL Calcium Level 9.5 mg/dL Total Bilirubin 0.6 mg/dL Aspartate Amino Transf (AST/SGOT) 14 U/L Alanine Aminotransferase (ALT/SGPT) 14 U/L Alkaline Phosphatase 41 U/L Total Protein 6.2 g/dL Albumin 3.1 g/dL Globulin 3.1 Thyroid Stimulating Hormone (TSH) 0.588 mIU/mL Current Medications Medications (Trade) Dose Ordered Sig/Danna Route PRN Reason Start Time Stop Time Status Last Admin Dose Admin Clonidine (Catapres) 0.2 mg STK-MED ONCE .ROUTE 05/31/18 10:01 05/31/18 10:02 DC Clonidine (Catapres) 0.2 mg STAT STAT PO 05/31/18 10:28 05/31/18 10:29 DC 05/31/18 10:02 Ketorolac Tromethamine (Toradol) 30 mg STK-MED ONCE .ROUTE 05/31/18 12:15 05/31/18 12:17 DC Ketorolac Tromethamine (Toradol) 30 mg STAT STAT IM 05/31/18 12:20 05/31/18 12:21 DC 05/31/18 12:23 Methylprednisolone Sodium Succinate (Solu-Medrol) 60 mg Q6 STAT IV 05/31/18 18:35 05/31/18 20:15 DC 05/31/18 19:22 Naproxen (Naproxen) 500 mg BID PO 05/31/18 21:00 06/30/18 20:59 05/31/18 20:26 Cyclobenzaprine HCl (Flexeril) 10 mg Q8 PRN PO MUSCLE SPASM 05/31/18 19:00 06/30/18 18:59 05/31/18 23:13 Tramadol HCl (Ultram) 50 mg Q4HR PRN PO PAIN 4 - 6 05/31/18 19:00 06/30/18 18:59 Pantoprazole Sodium (Protonix) 40 mg DAILY PO 06/01/18 09:00 07/01/18 08:59 Methylprednisolone Sodium Succinate (Solu-Medrol) 60 mg Q6HR IV 06/01/18 09:00 07/01/18 08:59 Course Sepsis Screening Results: Posi: NEGATIVE Sepsis Qualifier/Stage: NO DEFINITE RISK Duration or Total Time Spent w: 20 Vitals & review Data Vital Sign - Last 24 Hours 05/31/18 05/31/18 05/31/18 05/31/18 10:02 10:05 10:05 10:09 Temp 99.0 99.0 99.0 99.0 Pulse 73 56 56 Resp 24 24 24 B/P (MAP) 247/123 Pulse Ox 99 O2 Delivery Nasal Canula 05/31/18 05/31/18 05/31/18 05/31/18 10:11 10:30 11:00 11:30 Temp 99.0 99.0 Pulse 56 64 78 68 Resp 24 18 17 18 B/P (MAP) 247/128 (167) 206/111 (142) 207/108 (141) 178/98 (124) Pulse Ox 99 97 98 97 O2 Delivery Nasal [place]ula Room Air Room Air Room Air O2 Flow Rate 3.00 05/31/18 05/31/18 05/31/18 05/31/18 12:00 12:30 13:00 13:30 Pulse 74 74 73 83 Resp 18 17 17 17 B/P (MAP) 164/78 (106) 170/94 (119) 174/96 (122) 168/89 (115) Pulse Ox 97 98 97 98 O2 Delivery Room Air Room Air Room Air Room Air 05/31/18 05/31/18 05/31/18 05/31/18 13:31 16:19 18:08 20:20 Temp 99.0 97.6 98.0 97.6 98.0 Pulse 83 65 62 Resp 17 14 20 B/P (MAP) 93/54 (67) 116/68 (84) Pulse Ox 98 93 91 O2 Delivery Room Air Room Air Room Air Room Air 06/01/18 06/01/18 06/01/18 00:23 02:24 05:24 Temp 97.5 98.0 97.5 98.0 Pulse 62 65 Resp 20 20 B/P (MAP) 144/95 (111) 149/86 (107) Pulse Ox 96 96 O2 Delivery Nasal Canula Room Air Nasal Canula O2 Flow Rate 2.00 2.00 Intake and Output 05/31/18 05/31/18 06/01/18 15:00 23:00 07:00 Intake Total 300 ml Output Total 300 ml 300 ml Balance -300 ml 0 ml Laboratory Tests Test 06/01/18 04:16 White Blood Count 5.7 10^3/uL Red Blood Count 3.12 10^6/uL Hemoglobin 11.3 g/dL Hematocrit 34.0 % Mean Corpuscular Volume 109.0 fL Mean Corpuscular Hemoglobin 36.2 pg Mean Corpuscular Hemoglobin Concent 33.2 g/dL Red Cell Distribution Width 14.9 % Platelet Count 188 10^3/uL Mean Platelet Volume 10.2 fL Sodium Level 141 mmol/L Potassium Level 4.3 mmol/L Chloride Level 105.0 mmol/L Carbon Dioxide Level 26.3 mmol/L Anion Gap 14.0 Blood Urea Nitrogen 19 mg/dL Creatinine 0.79 mg/dL Estimated GFR () 84.5 BUN/Creatinine Ratio 24.0 Glucose Level 121 mg/dL Calcium Level 9.5 mg/dL Total Bilirubin 0.6 mg/dL Aspartate Amino Transf (AST/SGOT) 14 U/L Alanine Aminotransferase (ALT/SGPT) 14 U/L Alkaline Phosphatase 41 U/L Total Protein 6.2 g/dL Albumin 3.1 g/dL Globulin 3.1 Thyroid Stimulating Hormone (TSH) 0.588 mIU/mL Current Medications Medications (Trade) Dose Ordered Sig/Danna PRN Reason Start Time Stop Time Status Last Admin Cyclobenzaprine HCl (Flexeril) 10 mg Q8 PRN MUSCLE SPASM 05/31/18 19:00 06/30/18 18:59 05/31/18 23:13 Methylprednisolone Sodium Succinate (Solu-Medrol) 60 mg Q6HR 06/01/18 09:00 07/01/18 08:59 Naproxen (Naproxen) 500 mg BID 05/31/18 21:00 06/30/18 20:59 05/31/18 20:26 Pantoprazole Sodium (Protonix) 40 mg DAILY 06/01/18 09:00 07/01/18 08:59 Tramadol HCl (Ultram) 50 mg Q4HR PRN PAIN 4 - 6 05/31/18 19:00 06/30/18 18:59 Sepsis Infection Criteria Pres: None LEVEL 1 SEPSIS INFECTION CRITE: None/Not assessed LEVEL 2-SIRS (LIST ALL THAT AP: None/Not assessed Cardiovascular Evidence: Not Assessed or None Hematologic Evidence: None/Not assessed Hepatic Evidence: None/Not assessed Metabolic Evidence: None/Not assessed Neurological Evidence: None/Not assessed Respiratory Evidence: None/Not assessed Renal Evidence: None/Not assessed O2 Sat by Pulse Oximetry: 94 Oxygen Flow Rate: 2.00 Assessment/Plan Assessment/Plan Assessment/Plan 1.) Severe Low Back Pain - CT does not show any new problem. Likely severe low back muscular sprain and spams. - Slightly improved with IV Corticosteroids and muscle relaxer but overall slow to improve.. - PT/OT today. - Not able to take care of independently managing ADL's or ambulating,, so will need prison for an undetermined amount of time as her cannot take care of her either. 2.) LE Weakness - Mostly secondary to pain. - Continue any restorative therapy with PT. - Recommend current medical regimen once she gets home. - Will need home health when she does get home. 3.) Lumbar Spinal Stenosis - Unchanged but contributing to her acute on chronic pain. - Continue same meds as outlined above. 4.) Lupus - Stable on Prednisone and Azithioprine. 5.) HTN - Numbers quite high despite her normal regimen. - Increase Lisinopril and add bid Clonidine. Plan MOSES GRACE MD Jun 03, 2018 09:51
[2018-06-03] MEDS: IMURAN PO SCH (09:56)
[2018-06-03] MEDS: PROTONIX PO SCH (09:56)
[2018-06-03] MEDS ORDERED: DIFLUCAN PO STA (09:57)
[2018-06-03] MEDS: ELIQUIS PO SCH (09:57)
[2018-06-03] MEDS ORDERED: MYCOSTATIN PO STA (09:57)
[2018-06-03] MEDS: NAPROXEN PO SCH (09:57)
[2018-06-03] MEDS ORDERED: NYST1000 PO (09:59)
[2018-06-03] MEDS ORDERED: DIFLUCAN ONE (11:26)
[2018-06-03] MEDS ORDERED: MYCOSTATIN ONE (11:37)
[2018-06-03] MEDS ORDERED: CATAPRES ONE (12:00)
[2018-06-03] MEDS ORDERED: CATAPRES PO ONE (12:03)
[2018-06-03 13:29] VITALS: BP 188/110
[2018-06-03] MEDS ORDERED: APRESOLINE ONE (13:50)
[2018-06-03] MEDS ORDERED: APRESOLINE IV STA (13:52)
[2018-06-03 14:33] VITALS: BP 130/79
[2018-06-03] MEDS: ULTRAM PO PRN (15:25)
[2018-06-03 17:00] VITALS: BP 132/77
== END 2018-06-03 18:00 | DRG 552 ==
LOC: EDBD 09:55 → ER 09:55 → INTOOBSV 13:07 → OBSVTOIN 13:07 → MS 13:07 → UNDOADMOB 13:07 → EDPENDDISTM 06-03 10:30 → EDPENDDISDT 06-03 10:30 → EDPENDDISTM 06-03 17:00
PROVIDERS: ADMIT Internal Medicine; ATTEND Internal Medicine
DX: M48.061 Spinal stenosis, lumbar region without neurogenic claudication (principal); M54.16 Radiculopathy, lumbar region; F41.1 Generalized anxiety disorder; G89.29 Other chronic pain; I11.0 Hypertensive heart disease with heart failure; I50.9 Heart failure, unspecified; I48.91 Unspecified atrial fibrillation; G62.9 Polyneuropathy, unspecified; M06.9 Rheumatoid arthritis, unspecified; M10.9 Gout, unspecified; M19.90 Unspecified osteoarthritis, unspecified site; W01.0XXA Fall on same level from slipping, tripping and stumbling without subsequent striking against object, initial encounter; S33.5XXA Sprain of ligaments of lumbar spine, initial encounter; Z90.710 Acquired absence of both cervix and uterus; Z88.1 Allergy status to other antibiotic agents; Z88.8 Allergy status to other drugs, medicaments and biological substances; Z79.01 Long term (current) use of anticoagulants; Z79.82 Long term (current) use of aspirin; Z79.899 Other long term (current) drug therapy; Y93.89 Activity, other specified; Y99.8 Other external cause status; Y92.098 Other place in other non-institutional residence as the place of occurrence of the external cause
CPT/HCPCS: 36415; 71045; 72131; 72192; 80053; 81000; 84443; 85027; 94640; 97161; 99285; G0378; J0360; J1885; J2920; J2930; J7120; J7605; J7627; 97116-GP; 97530-GP; J7500

== ENCOUNTER 2018-06-08 04:45 | Inpatient (IN) | payer MEDICARE, OTHER ==
[~2018-06-08] VITALS: Ht 157.5 cm; Wt 55.8 kg
[2018-06-08] VITALS (8 sets, daily range): BP systolic 96–153; BP diastolic 46–98
[~2018-06-08 04:45] MED LIST changes: +APIX2.5T PO; +NYST1000 PO; +TRAM1TAB PO
--- NOTE | 2018-06-08 05:00 | NUR ---
Update This nurse assisted Dr. Gracia at bedside with occult blood testing. Patient tolorated well
--- NOTE | 2018-06-08 05:10 | NUR ---
Diarrhea Patient had a small amout of diarrhea after occult testing. Pt. is cleaned up and placed on clean sheets at this time. Pt is in stable condtion
--- NOTE | 2018-06-08 05:14 | ER.PDOC ---
General Chief Complaint: Requesting Medical Care Stated Complaint: DIARRHEA Time seen by MD: 05:02 Source: patient Exam Limitations: no limitations History of Present Illness Initial Comments Patient had constipation for 2 weeks, was given a laxative and she is having diarrhea. Severity/Quality: moderate Associated Symptoms (diarrhea): watery Allergies: Coded Allergies: chlorpheniramine (Verified Allergy, Mild, 05/24/16) hydrocodone (Verified Allergy, Mild, 05/24/16) moxifloxacin (Verified Allergy, Mild, 05/24/16) Home Meds Active Scripts Nystatin (NYSTATIN) 100,000 Unit/1 Ml Oral.susp, [id number] UNIT PO QID for 5 Days Prov:MOSES GRACE MD 06/03/18 Reported Medications Tramadol Hcl/Acetaminophen (TRAMADOL-ACETAMINOPHN 37.5-325) 1 Each Tablet, 1 EACH PO PRN PRN for PAIN SEVERE, TABLET 05/31/18 Apixaban (Eliquis) 2.5 Mg Tablet, 2.5 MG PO BID, TABLET 05/31/18 Pantoprazole Sodium (PANTOPRAZOLE SODIUM) 40 Mg Tablet.dr, 40 MG PO DAILY 05/24/16 Melatonin (MELATONIN) 3 Mg Tablet, 1 MG PO HS, TABLET 05/24/16 Budesonide/Formoterol Fumarate (SYMBICORT 160-4.5 MCG INHALER) 10.2 Gm Hfa.aer.ad, 1 PUFF IH BID, #10.6 GRAM 3 Refills 01/24/16 Rosuvastatin 20MG (CRESTOR 20MG) 20 Mg Tablet, 1 TAB PO DAILY, #30 TAB 5 Refills 01/24/16 Carvedilol 12.5MG (COREG 12.MG) 12.5 Mg Tablet, 1 TAB PO BID, #180 TAB 1 Refill 01/24/16 Azathioprine (AZATHIOPRINE) 50 Mg Tablet, 1 TAB PO BID, #30 TAB 3 Refills 01/24/16 Prednisone (PREDNISONE) 5 Mg Tab.ds.pk, 5 MG PO DAILY 01/24/16 Lisinopril (LISINOPRIL) 20 Mg Tablet, 1 TAB PO DAILY, #30 TAB 5 Refills 01/24/16 Levothyroxine Sodium (LEVOTHYROXINE SODIUM) 50 Mcg Tablet, 1 TAB PO DAILY, #30 TAB 5 Refills 11/25/16 Vital Signs First Vital Signs Date Time Temp Pulse Resp B/P (MAP) Pulse Ox O2 Delivery O2 Flow Rate FiO2 06/03/18 13:57 61 06/08/18 04:45 97.9 16 97.9 06/08/18 04:45 95 Room Air 06/08/18 04:45 124/46 (72) Last Vital Signs Date Time Temp Pulse Resp B/P (MAP) Pulse Ox O2 Delivery O2 Flow Rate FiO2 06/08/18 04:45 97.9 68 16 124/46 (72) 95 Room Air 97.9 Past Medical History Medical History: congestive heart failure Surgical History: appendectomy, hysterectomy, shoulder Social History Drug Use: none Constitutional: no symptoms reported EENTM: no symptoms reported Respiratory: no symptoms reported Cardiovascular: no symptoms reported Gastrointestinal: see HPI All Other Systems: Reviewed and Negative Physical Exam General Appearance: No Apparent Distress, WD/WN Neck: Non-Tender, Full Range of Motion, Supple, Normal Inspection Respiratory: chest non-tender, lungs clear, normal breath sounds, no respiratory distress, no accessory muscle use Cardiovascular: Normal Peripheral Pulses, Regular Rate, Rhythm, No Edema, No Gallop, No JVD, No Murmur Gastrointestinal: No Organomegaly, No Pulsatile Mass, Hyperactive bowel sounds , Guarding, Tenderness Back: Normal Inspection, No CVA Tenderness, No Vertebral Tenderness Extremities: Normal Range of Motion, Non-Tender, Normal Inspection, No Pedal Edema, No Calf Tenderness, Normal Capillary Refill, Pelvis Stable 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 (06/08/18 04:59) Ct Abd/Pelvis Wo Iv Contrast (06/08/18 04:59) Vital Signs Date Time Temp Pulse Resp B/P (MAP) Pulse Ox O2 Delivery O2 Flow Rate FiO2 06/08/18 04:45 97.9 68 16 124/46 (72) 95 Room Air 97.9 06/08/18 04:45 97.9 68 16 95 Room Air 97.9 06/08/18 04:45 97.9 68 16 97.9 06/03/18 17:00 65 06/03/18 13:57 61 Laboratory Tests Test 06/08/18 05:00 06/08/18 05:10 POC Stool Occult Blood POSITIVE (NEGATIVE) White Blood Count 11.2 10^3/uL (4.5-11.0) H Red Blood Count 3.61 10^6/uL (4.00-5.20) L Hemoglobin 13.2 g/dL (12.0-15.0) Hematocrit 39.1 % (36.0-46.0) Mean Corpuscular Volume 108.3 fL (78-100) H Mean Corpuscular Hemoglobin 36.6 pg (26-34) H Mean Corpuscular Hemoglobin Concent 33.8 g/dL (33-37) Red Cell Distribution Width 14.9 % (11.5-14.5) H Platelet Count 196 10^3/uL (150-400) Mean Platelet Volume 10.3 fL (7.8-11.0) Neutrophils (%) (Auto) 84.4 % (41.0-85.0) Lymphocytes (%) (Auto) 8.0 % (24.0-44.0) L Monocytes (%) (Auto) 5.5 % (5.0-12.0) Neutrophils # (Auto) 9.5 10^3/uL (1.8-7.7) H Lymphocytes # (Auto) 0.9 10^3/uL (1.0-4.8) L Monocytes # (Auto) 0.6 10^3/uL (0.3-0.8) Absolute Immature Granulocyte (auto 0.07 10^3 u/L (0-2) Eosinophils % 1.4 % (0.0-5.0) Basophils % 0.1 % (0.0-0.2) Basophils # 0.0 10^3/uL (0.0-0.1) Eosinophil Count 0.2 10^3/uL (0.0-0.2) Prothrombin Time 11.9 SEC (9.8-11.9) Prothrombin Time INR (Non-Therap) 1.2 PTT 29.0 SEC (24.67-30.72) Sodium Level 136 mmol/L (132-145) Potassium Level 4.6 mmol/L (3.6-5.2) Chloride Level 100.0 mmol/L (96-109) Carbon Dioxide Level 28.8 mmol/L (20.0-32) Anion Gap 11.8 Blood Urea Nitrogen 25 mg/dL (7-18) H Creatinine 0.95 mg/dL (0.59-1.40) Estimated GFR () 68.3 (>/=60) BUN/Creatinine Ratio 26.0 Glucose Level 117 mg/dL (70-110) H Calcium Level 10.3 mg/dL (8.4-10.5) Total Bilirubin 1.7 mg/dL (0.2-1.0) H Aspartate Amino Transferase (AST) 15 U/L (0-35) Alanine Aminotransferase (ALT) 15 U/L (12-78) Alkaline Phosphatase 53 U/L (50-136) Total Protein 6.1 g/dL (6.4-8.2) L Albumin 2.7 g/dL (3.4-5.0) L Globulin 3.4 Lipase 51 U/L (114-286) L Percent Immature Gran (Cell Imm) 0.60 % (0.00-0.50) H Progress Progress CT abdomen/pelvis: Acute diverticulitis of the distal transverse and proximal descending colon versus focal colitis. No peridiverticular abscess. No free fluid or pneumoperitoneum. 2. Evidence of likely volume overload the bilateral lung bases, right greater than left. Cannot entirely exclude infection. Departure Time of Disposition: 06:27 Disposition: 01 HOME, SELF-CARE Impression: Primary Impression: Colitis Additional Impressions: Acute diarrhea Dehydration Condition: Stable Referrals: ROSHAN LOPES (PCP) PRIMARY CARE PROVIDER Comments Admitted to Dr. Galdamez Duration or Time Spent with Pa: 60 mins Problem Qualifiers BRANDAN TEMPLE MD Jun 08, 2018 05:14
--- NOTE | 2018-06-08 05:16 | NUR ---
LOIS Brown from Radiology is called to notify of CT order. Stephanie expressed understanding and states she will be here.
[2018-06-08 05:19] LABS: BASOPHIL % 0.1 % (0.0-0.2); EOSINOPHIL # 0.2 10^3/uL (0.0-0.2); EOSINOPHIL % 1.4 % (0.0-5.0); HEMOGLOBIN 13.2 g/dL (12.0-15.0); LYMPHOCYTES # 0.9 10^3/uL (1.0-4.8); MEAN CELL HGB 36.6 pg (26-34); MEAN CELL HGB CONCENTRATION 33.8 g/dL (33-37); MEAN CORP VOLUME 108.3 fL (78-100); MEAN PLATELET VOLUME 10.3 fL (7.8-11.0); MONOCYTES # 0.6 10^3/uL (0.3-0.8); MONOCYTES % 5.5 % (5.0-12.0); NEUTROPHIL # 9.5 10^3/uL (1.8-7.7); NEUTROPHILS % 84.4 % (41.0-85.0); RED CELL DISTRIBUTION WIDTH 14.9 % (11.5-14.5); WHITE BLOOD CELL 11.2 10^3/uL (4.5-11.0)
--- NOTE | 2018-06-08 05:30 | NUR ---
Update Family at pts bedside
[2018-06-08 05:34] LABS: CALCIUM 10.3 mg/dL (8.4-10.5); CARBON DIOXIDE 28.8 mmol/L (20.0-32)
--- NOTE | 2018-06-08 06:13 | DIREP ---
PROCEDURE:CT ABDOMEN/PELVIS W/O CONTRAST COMPARISON:[facility], CR, XRAY CHEST SINGLE VW, 05/31/2018, 06:56 PM. [facility], CT, CT ABD/PELVIS W/O, 11/19/2017, 12:37 PM. INDICATIONS:Abdominal pain TECHNIQUE:Axial images were created through the abdomen and pelvis without intravenous contrast material. No oral contrast was administered. The lack of oral contrast limits assessment of the bowel Sagittal and coronal reconstructions were performed from source images. FINDINGS: LUNG BASES:Mild right basilar airspace disease and pleural fluid with trace left basilar effusion. Suspicious for pulmonary edema. Cannot entirely exclude infiltrate. Cardiomegaly and mitral valve calcifications, similar prior exam. LIVER:Normal. No significant liver lesions are identified. BILIARY:Normal. No visible dilatation or calcification. PANCREAS:Normal. No lesion, fluid collection, ductal dilatation, or atrophy. SPLEEN:Normal. No enlargement or focal lesion. ADRENALS:Normal. No mass or enlargement. URINARY TRACT:No hydronephrosis or obstructing lesion. No significant renal calcification. Urinary bladder within normal limits. AORTA/VASCULAR: Atherosclerosis. No aneurysm RETROPERITONEUM:Normal. No mass or adenopathy. BOWEL/MESENTERY:Significant colonic diverticulosis with acute inflammatory changes about the distal transverse colon and extending through the splenic flexure and the proximal most descending colon. Findings compatible with diverticulitis versus focal colitis. No peridiverticular abscess. ABDOMINAL WALL:Normal. No mass or hernia. PELVIC ORGANS:Normal. No visible mass. Pelvic organs appropriate for patient age. BONES:Stable grade 1 anterolisthesis L4 on L5 . OTHER:Negative. CONCLUSION: 1. Acute diverticulitis of the distal transverse and proximal descending colon versus focal colitis. No peridiverticular abscess. No free fluid or pneumoperitoneum. 2. Evidence of likely volume overload the bilateral lung bases, right greater than left. Cannot entirely exclude infection. Dictated by: Nithin Dash DO on 06/08/2018 at 06:06 AM
[2018-06-08] MEDS ORDERED: FLAGYL 500MG/ 100 ML NS 100 ML IV STA (06:31)
[2018-06-08] MEDS ORDERED: BACTRIM DS PO STA (06:31)
--- NOTE | 2018-06-08 06:31 | NUR ---
[facility] THIS NURSE CALLED FOR A ROOM, NURSES RECEIVING REPORT, TOLD LIAISON ENGINEER NURSE TO HAVE DAY CHARGE NURSE CALL ME WITH A ROOM.
[2018-06-08] MEDS ORDERED: FLAGYL 500MG/ 100 ML NS 100 ML IV ONE (06:51)
[2018-06-08] MEDS ORDERED: BACTRIM DS ONE (06:52)
--- NOTE | 2018-06-08 07:05 | NUR ---
[facility] THIS NURSE CALLED FOR A ROOM FOR PATIENT, [facility] FULL, AND PATIENT WILL BE AN ICU OVERFLOW, WILL CALL BACK AFTER THEY APPROVE WITH CEMENT RUBBER.
--- NOTE | 2018-06-08 07:33 | NUR ---
[facility] CALLED FOR A HOLD ROOM SO, PATIENT CAN GET ADMITTED, CHARGE NURSE BUSY WITH A PATIENT, WILL CALL ME BACK WITH A ROOM.
--- NOTE | 2018-06-08 07:35 | NUR ---
ICU OVERFLOW PATIENT WILL BE AN OVERFLOW IN ICU 2, CHARGE NURSE TO CALL IN ICU NURSE AT THIS TIME.
--- NOTE | 2018-06-08 08:20 | NUR ---
PRINCIPAL PLANNER NURSE WILL CALL THIS NURSE WHEN PRINCIPAL PLANNER ARRIVES, PATIENT IN ROOM, NO NEEDS AT THIS TIME, RESTING WITH EYES CLOSED.
[2018-06-08] MEDS ORDERED: TRAM50TA PO (08:57)
[2018-06-08] MEDS ORDERED: ATOR40TA PO (08:57)
[2018-06-08] MEDS ORDERED: FLUT1AER IH (08:58)
[2018-06-08] MEDS ORDERED: ZOFRAN IV PRN (10:30)
[2018-06-08] MEDS: COREG PO SCH ×2 (10:30→21:15)
[2018-06-08] MEDS: ZOSYN 3.375 GRAM VIAL 3.375 GM in NS 100ML 100 ML IV SCH ×3 (10:30→22:51)
[2018-06-08] MEDS ORDERED: DUONEB 0.5 MG-3 MG/3 ML SOLN IH PRN (10:30)
--- NOTE | 2018-06-08 10:40 | PCM.HP ---
History of Present Illness Reason for Visit: Diarrhea, abdominal pain History of Present Illness Patient is a 82 F PMH below presenting from long term with diarrhea and abdominal pain. Patient has been constipated recently and having abdominal pain 2/2 constipation. Patient finally given laxative at [facility] and this AM started having diarrhea. Patient had multiple episodes with associated Hematochezia. Patient feels much better now that she has had BM. She is more comfortable and denies complaints. CT scan in ER shows Diverticulitis v. Colitis of distal transverse colon and proximal descending colon. Patient started on abx. Imaging, labs all reviewed. Patient is comfortable and in no distress during my evaluation. is present in room @ bedside. Patient is agreeable to staying for abx treatment. Past Medical History Cardiac: AFIB, Hyperlipidemia Rheumatologic: Other (Systemic Lupus Erythematosus) Endocrine: Hypothyroidism Past Surgical History: Appendectomy, Other (Hysterectomy, shoulder, PPM) Past Social History Smoke: No Alcohol: none Drugs: None Lives: [facility] Travel Hx EBOLA RISK:Travel to/contact w: No Is pt experiencing any Ebola s: No Review of Systems Constitutional: No: Fever, Chills Eyes: No: Conjunctivae inflammation, Eyelid inflammation ENT: No: Nose discharge, Nose congestion Respiratory: No: Cough, Shortness of breath, SOB with excertion, Wheezing Cardiovascular: No: Chest Pain, Palpitations, Edema Gastrointestinal: Nausea, Abdominal Pain, Diarrhea, Constipation, Hematochezia ; No: Vomiting Genitourinary: No Dysuria, No Frequency Musculoskeletal: No: neck pain, back pain Skin: No: Rash, Lesions, Jaundice, Bruising Neurological: Weakness; No: Numbness, Incoordination, Change in speech, Confusion, Seizures Allergies: Coded Allergies: chlorpheniramine (Verified Allergy, Mild, 05/24/16) hydrocodone (Verified Allergy, Mild, 05/24/16) moxifloxacin (Verified Allergy, Mild, 05/24/16) Scheduled Apixaban (Eliquis), 2.5 MG PO BID, (Reported) Atorvastatin 40MG (Lipitor 40MG), 1 TAB PO HS, (Reported) Carvedilol 12.5MG (Coreg 12.MG), 1 TAB PO BID, (Reported) Fluticasone/Vilanterol (Breo Ellipta 100-25 Mcg INH), 1 EACH IH DAILY24, ( Reported) Levothyroxine Sodium (Levothyroxine Sodium), 1 TAB PO DAILY, (Reported) Lisinopril (Lisinopril), 1 TAB PO DAILY, (Reported) Melatonin (Melatonin), 1 MG PO HS, (Reported) Pantoprazole Sodium (Pantoprazole Sodium), 40 MG PO DAILY, (Reported) Prednisone (Prednisone), 5 MG PO DAILY, (Reported) Scheduled PRN Tramadol Hcl (Tramadol Hcl), 1 TAB PO Q4HR PRN for PAIN, (Reported) Tramadol Hcl/Acetaminophen (Tramadol-Acetaminophn 37.5-325), 1 EACH PO PRN PRN for PAIN SEVERE, (Reported) Discontinued Medications Azathioprine (Azathioprine), 1 TAB PO BID, (Reported) Discontinued Reason: No Longer Taking Budesonide/Formoterol Fumarate (Symbicort 160-4.5 Mcg Inhaler), 1 PUFF IH BID, ( Reported) Discontinued Reason: No Longer Taking Nystatin (Nystatin), 100,000 UNIT PO QID Discontinued Reason: No Longer Taking Rosuvastatin 20MG (Crestor 20MG), 1 TAB PO DAILY, (Reported) Discontinued Reason: No Longer Taking VTE VTE Risk Total Score: >5 VTE Risk Score VTE Risk: Score 0-1 = Low Risk (Aggressive mobilization; early ambulation; no VTE prophylaxis required) Score 2: Moderate Risk (Intermittent/Pneumatic Compression Device OR Lovenox/Heparin/Coumadin) Score 3-4: High Risk (Intermittent/Pneumatic Compression Device AND Lovenox/Heparin/Coumadin) Score > or =5: Highest Risk (Intermittent/Pneumatic Compression Device AND Lovenox/Heparin/Coumadin) VTE VTE Present on Admission: No Currently receiving anticoagul: Yes VTE Risk Total Score: >5 Exam Vital Signs Vital Signs Date Time Temp Pulse Resp B/P (MAP) Pulse Ox O2 Delivery O2 Flow Rate FiO2 06/08/18 09:36 Nasal Cannula 2.00 06/08/18 09:29 16 95 06/08/18 09:28 73 28 06/08/18 09:00 97.9 06/08/18 08:50 113/48 (69) General Appearance: Alert, Oriented X3, Cooperative, No acute distress HEENT: Atraumatic, PERRLA, EOMI, Mucous membr. moist/pink Respiratory: Clear to auscultation, Normal air movement Cardiovascular: Regular rate, Normal S1, Normal S2, No murmurs Abdominal: Normal bowel sounds, Soft, No tenderness Extremities: No edema, Normal pulses, No tenderness/swelling Skin: No rash, No breakdown, No lesions Neuro: Normal speech, Strength at 5/5 X4 ext, Normal tone, Sensation intact, Cranial nerves 3-12 NL Psych/Mental Status: Mental status NL, Mood NL Assessment/Plan Assessment/Plan Assessment/Plan Patient is a 82 F PMH below presenting from long term with diarrhea and abdominal pain. Patient History: FH: heart disease 32 MOTHER, Onset:60 years & older 33 FATHER, Onset:60 years & older G8 BROTHER, Onset:60 years & older Plan 1. Colitis: cont IV abx. Patient allergic to fluoroquinolones, given Flagyl/ Bactrim in ER. We will cont flagyl PO and give Zosyn IV. Monitor labs. Pain/ nausea control PRN. 2. Afib: cont Eliquis, BB 3. Hypothyroidism: cont Synthroid 4. Lupus: continue daily prednisone. No acute issues currently. 5. PPx: Brielle, BIMAL THOMPSON MD Jun 08, 2018 10:40
--- NOTE | 2018-06-08 13:05 | NUR ---
RECEIVED REPORT FROM Emperatriz HUDSON RN. ASSUMED PATIENT CARE
[2018-06-08] MEDS: FLAGYL PO SCH ×2 (14:47→21:15)
--- NOTE | 2018-06-08 15:40 | NUR ---
NOTIFIED DR RAINES OF BP OF 96/. NEW ORDERS RECEIVED TO START PATIENT ON NS AT 75ML/HOUR
[2018-06-08] MEDS ORDERED: NS 500ML 500 ML IV ONE (15:43)
[2018-06-08] MEDS: NS 1000ML 1,000 ML IV SCH (15:53)
[2018-06-08] MEDS: ULTRAM PO PRN ×2 (17:51→21:14)
[2018-06-08] MEDS: LIPITOR PO SCH (21:15)
[2018-06-08] MEDS: ELIQUIS PO SCH (21:15)
[2018-06-09] MEDS: NS 1000ML 1,000 ML IV SCH ×2 (02:33→17:54)
[2018-06-09] MEDS: ULTRAM PO PRN ×4 (02:40→17:52)
[2018-06-09 04:06] VITALS: BP 152/79
[2018-06-09] MEDS: ZOSYN 3.375 GRAM VIAL 3.375 GM in NS 100ML 100 ML IV SCH ×5 (04:24→21:34)
[2018-06-09 05:14] LABS: BASOPHIL % 0.1 % (0.0-0.2); EOSINOPHIL # 0.3 10^3/uL (0.0-0.2); EOSINOPHIL % 3.4 % (0.0-5.0); LYMPHOCYTES # 1.1 10^3/uL (1.0-4.8); MEAN CELL HGB 36.4 pg (26-34); MEAN CELL HGB CONCENTRATION 33.5 g/dL (33-37); MEAN CORP VOLUME 108.5 fL (78-100); MEAN PLATELET VOLUME 10.7 fL (7.8-11.0); MONOCYTES # 0.7 10^3/uL (0.3-0.8); MONOCYTES % 9.6 % (5.0-12.0); NEUTROPHIL # 5.6 10^3/uL (1.8-7.7); NEUTROPHILS % 72.4 % (41.0-85.0); RED CELL DISTRIBUTION WIDTH 15.1 % (11.5-14.5); WHITE BLOOD CELL 7.7 10^3/uL (4.5-11.0)
[2018-06-09 05:40] LABS: CALCIUM 9.4 mg/dL (8.4-10.5)
[2018-06-09] MEDS: SYNTHROID PO SCH (06:00)
--- NOTE | 2018-06-09 07:30 | NUR ---
BKF SERVED REPOS TO SIT UP AND EAT
[2018-06-09 07:48] VITALS: BP 139/87
--- NOTE | 2018-06-09 07:59 | PRM.PN ---
Subjective Subjective Date: Jun 09, 2018 Time: 07:55 Subjective Patient pain improved, diarrhea has resolved. Patient still has poor appetite. Labs, imaging reviewed. Patient History: FH: heart disease 32 MOTHER, Onset:60 years & older 33 FATHER, Onset:60 years & older G8 BROTHER, Onset:60 years & older VTE VTE Risk Total Score: >5 VTE Risk Score VTE Risk: Score 0-1 = Low Risk (Aggressive mobilization; early ambulation; no VTE prophylaxis required) Score 2: Moderate Risk (Intermittent/Pneumatic Compression Device OR Lovenox/Heparin/Coumadin) Score 3-4: High Risk (Intermittent/Pneumatic Compression Device AND Lovenox/Heparin/Coumadin) Score > or =5: Highest Risk (Intermittent/Pneumatic Compression Device AND Lovenox/Heparin/Coumadin) Review of Systems Allergies: Coded Allergies: chlorpheniramine (Verified Allergy, Mild, 05/24/16) hydrocodone (Verified Allergy, Mild, 05/24/16) moxifloxacin (Verified Allergy, Mild, 05/24/16) Scheduled Apixaban (Eliquis), 2.5 MG PO BID, (Reported) Atorvastatin 40MG (Lipitor 40MG), 1 TAB PO HS, (Reported) Carvedilol 12.5MG (Coreg 12.MG), 1 TAB PO BID, (Reported) Fluticasone/Vilanterol (Breo Ellipta 100-25 Mcg INH), 1 EACH IH DAILY24, ( Reported) Levothyroxine Sodium (Levothyroxine Sodium), 1 TAB PO DAILY, (Reported) Lisinopril (Lisinopril), 1 TAB PO DAILY, (Reported) Melatonin (Melatonin), 1 MG PO HS, (Reported) Pantoprazole Sodium (Pantoprazole Sodium), 40 MG PO DAILY, (Reported) Prednisone (Prednisone), 5 MG PO DAILY, (Reported) Scheduled PRN Tramadol Hcl (Tramadol Hcl), 1 TAB PO Q4HR PRN for PAIN, (Reported) Tramadol Hcl/Acetaminophen (Tramadol-Acetaminophn 37.5-325), 1 EACH PO PRN PRN for PAIN SEVERE, (Reported) Discontinued Medications Azathioprine (Azathioprine), 1 TAB PO BID, (Reported) Discontinued Reason: No Longer Taking Budesonide/Formoterol Fumarate (Symbicort 160-4.5 Mcg Inhaler), 1 PUFF IH BID, ( Reported) Discontinued Reason: No Longer Taking Nystatin (Nystatin), 100,000 UNIT PO QID Discontinued Reason: No Longer Taking Rosuvastatin 20MG (Crestor 20MG), 1 TAB PO DAILY, (Reported) Discontinued Reason: No Longer Taking Objective Vitals and I/O Vital Sign - Last 24 Hours 06/08/18 06/08/18 06/08/18 06/08/18 08:50 09:00 09:28 09:29 Temp 97.9 Pulse 73 62 73 Resp 16 18 16 16 B/P (MAP) 113/48 (69) Pulse Ox 95 95 95 95 O2 Delivery Nasal Canula Nasal Canula Nasal Cannula O2 Flow Rate 2.00 2.00 FiO2 28 06/08/18 06/08/18 06/08/18 06/08/18 09:36 10:30 14:40 15:00 Temp 97.4 97.4 Pulse 72 65 95 Resp 16 18 B/P (MAP) 113/48 96/55 (69) Pulse Ox 95 95 O2 Delivery Nasal Cannula Nasal Canula O2 Flow Rate 2.00 2.00 06/08/18 06/08/18 06/08/18 06/08/18 17:54 20:55 21:04 21:15 Temp 98.9 98.9 Pulse 64 64 Resp 16 B/P (MAP) 103/56 (72) 147/70 (95) 147/70 Pulse Ox 99 O2 Delivery Nasal Canula Nasal Cannula O2 Flow Rate 2.00 2.00 06/08/18 06/08/18 06/09/18 06/09/18 21:24 23:43 04:06 07:48 Temp 97.2 98.2 97.6 97.2 98.2 97.6 Pulse 75 68 66 70 Resp 18 16 18 18 B/P (MAP) 113/56 (75) 152/79 (103) 139/87 (104) Pulse Ox 98 98 98 98 O2 Delivery Nasal Cannula Nasal Canula Nasal Canula Nasal Canula O2 Flow Rate 2.00 2.00 2.00 2.00 Intake and Output 06/08/18 06/08/18 06/09/18 15:00 23:00 07:00 Intake Total 500 ml Output Total 650 ml Balance -150 ml General: Alert, Oriented X3, Cooperative, No acute distress HEENT: Atraumatic, PERRLA, EOMI, Mucous membr. moist/pink Neck: Supple, No JVD Lungs: Clear to auscultation, Normal air movement Heart: Regular rate, Normal S1, Normal S2, No murmurs Abdomen: Normal bowel sounds, Soft, No tenderness Extremities: No edema, Normal pulses, No tenderness/swelling Skin: No rashes, No breakdown, No significant lesion Neuro: Normal speech, Strength at 5/5 X4 ext, Normal tone, Sensation intact, Cranial nerves 3-12 NL Psych/Mental Status: Mental status NL, Mood NL All Results(Lab/Rad) Laboratory Tests Test 06/09/18 04:32 White Blood Count 7.7 10^3/uL Red Blood Count 3.30 10^6/uL Hemoglobin 12.0 g/dL Hematocrit 35.8 % Mean Corpuscular Volume 108.5 fL Mean Corpuscular Hemoglobin 36.4 pg Mean Corpuscular Hemoglobin Concent 33.5 g/dL Red Cell Distribution Width 15.1 % Platelet Count 165 10^3/uL Mean Platelet Volume 10.7 fL Neutrophils (%) (Auto) 72.4 % Lymphocytes (%) (Auto) 14.0 % Monocytes (%) (Auto) 9.6 % Neutrophils # (Auto) 5.6 10^3/uL Lymphocytes # (Auto) 1.1 10^3/uL Monocytes # (Auto) 0.7 10^3/uL Absolute Immature Granulocyte (auto 0.04 10^3 u/L Eosinophils % 3.4 % Basophils % 0.1 % Basophils # 0.0 10^3/uL Eosinophil Count 0.3 10^3/uL Sodium Level 135 mmol/L Potassium Level 4.7 mmol/L Chloride Level 103.0 mmol/L Carbon Dioxide Level 23.0 mmol/L Anion Gap 13.7 Blood Urea Nitrogen 31 mg/dL Creatinine 1.05 mg/dL Estimated GFR () 60.9 BUN/Creatinine Ratio 29.0 Glucose Level 74 mg/dL Calcium Level 9.4 mg/dL Total Bilirubin 0.9 mg/dL Aspartate Amino Transf (AST/SGOT) 23 U/L Alanine Aminotransferase (ALT/SGPT) 13 U/L Alkaline Phosphatase 46 U/L Total Protein 5.8 g/dL Albumin 2.3 g/dL Globulin 3.5 Percent Immature Gran (Cell Imm) 0.50 % Current Medications Medications (Trade) Dose Ordered Sig/Danna Route PRN Reason Start Time Stop Time Status Last Admin Dose Admin Metronidazole 100 ml @ 100 mls/hr STAT STAT IV 06/08/18 06:31 06/08/18 07:30 DC 06/08/18 07:15 Trimethoprim/ Sulfamethoxazole (Bactrim Ds) 1 each STAT STAT PO 06/08/18 06:31 06/08/18 06:35 DC 06/08/18 07:15 Metronidazole 100 ml @ ud STK-MED ONCE IV 06/08/18 06:51 06/08/18 06:53 DC Trimethoprim/ Sulfamethoxazole (Bactrim Ds) 1 each STK-MED ONCE .ROUTE 06/08/18 06:52 06/08/18 06:53 DC Atorvastatin Calcium (Lipitor) 40 mg HS PO 06/08/18 21:00 07/08/18 20:59 06/08/18 21:15 Carvedilol (Coreg) 12.5 mg BID PO 06/08/18 10:30 07/08/18 10:29 06/08/18 21:15 Levothyroxine Sodium (Synthroid) 50 mcg ACB PO 06/09/18 06:30 07/09/18 06:29 06/09/18 06:00 Pantoprazole Sodium (Protonix) 40 mg DAILY PO 06/09/18 09:00 07/09/18 08:59 Tramadol HCl (Ultram) 50 mg Q4HR PRN PO PAIN 06/08/18 10:30 07/08/18 10:29 06/09/18 06:11 Prednisone (Prednisone) 5 mg DAILY PO 06/09/18 09:00 07/09/18 08:59 Ondansetron HCl (Zofran) 4 mg Q4H PRN IV NAUSEA / VOMITING 06/08/18 10:30 07/08/18 10:29 Pantoprazole Sodium (Protonix) 40 mg DAILY PO 06/09/18 09:00 06/09/18 09:00 DC Albuterol/ Ipratropium (Duoneb 0.5 Mg-3 Mg/3 ml Soln) 3 ml RTQ6 PRN IH SHORTNESS OF BREATH 06/08/18 10:30 07/08/18 10:29 Metronidazole (Flagyl) 500 mg TID PO 06/08/18 15:00 07/08/18 14:59 06/08/18 21:15 Piperacillin Sod/ Tazobactam Sod 3.375 gm/Sodium Chloride 100 ml @ 100 mls/hr Q6H IV 06/08/18 10:30 07/08/18 10:29 06/09/18 04:24 Sodium Chloride 500 ml @ ud STK-MED ONCE IV 06/08/18 15:43 06/08/18 15:45 DC Sodium Chloride 1,000 ml @ 75 mls/hr [id number] IV 06/08/18 16:00 07/08/18 15:59 06/09/18 02:33 Course Sepsis Screening Results: Posi: POSITIVE Sepsis Qualifier/Stage: SEPSIS RISK Duration or Total Time Spent w: 60 mins Vitals & review Data Vital Sign - Last 24 Hours 06/08/18 06/08/18 06/08/18 06/08/18 08:50 09:00 09:28 09:29 Temp 97.9 Pulse 73 62 73 Resp 16 18 16 16 B/P (MAP) 113/48 (69) Pulse Ox 95 95 95 95 O2 Delivery Nasal Canula Nasal Canula Nasal Cannula O2 Flow Rate 2.00 2.00 FiO2 28 06/08/18 06/08/18 06/08/18 06/08/18 09:36 10:30 14:40 15:00 Temp 97.4 97.4 Pulse 72 65 95 Resp 16 18 B/P (MAP) 113/48 96/55 (69) Pulse Ox 95 95 O2 Delivery Nasal Cannula Nasal Canula O2 Flow Rate 2.00 2.00 06/08/18 06/08/18 06/08/18 06/08/18 17:54 20:55 21:04 21:15 Temp 98.9 98.9 Pulse 64 64 Resp 16 B/P (MAP) 103/56 (72) 147/70 (95) 147/70 Pulse Ox 99 O2 Delivery Nasal Canula Nasal Cannula O2 Flow Rate 2.00 2.00 06/08/18 06/08/18 06/09/18 06/09/18 21:24 23:43 04:06 07:48 Temp 97.2 98.2 97.6 97.2 98.2 97.6 Pulse 75 68 66 70 Resp 18 16 18 18 B/P (MAP) 113/56 (75) 152/79 (103) 139/87 (104) Pulse Ox 98 98 98 98 O2 Delivery Nasal Cannula Nasal Canula Nasal Canula Nasal Canula O2 Flow Rate 2.00 2.00 2.00 2.00 Intake and Output 06/08/18 06/08/18 06/09/18 15:00 23:00 07:00 Intake Total 500 ml Output Total 650 ml Balance -150 ml Laboratory Tests Test 06/08/18 05:00 06/08/18 05:10 06/09/18 04:32 Bedside Stool Occult Blood POSITIVE White Blood Count 11.2 10^3/uL 7.7 10^3/uL Red Blood Count 3.61 10^6/uL 3.30 10^6/uL Hemoglobin 13.2 g/dL 12.0 g/dL Hematocrit 39.1 % 35.8 % Mean Corpuscular Volume 108.3 fL 108.5 fL Mean Corpuscular Hemoglobin 36.6 pg 36.4 pg Mean Corpuscular Hemoglobin Concent 33.8 g/dL 33.5 g/dL Red Cell Distribution Width 14.9 % 15.1 % Platelet Count 196 10^3/uL 165 10^3/uL Mean Platelet Volume 10.3 fL 10.7 fL Neutrophils (%) (Auto) 84.4 % 72.4 % Lymphocytes (%) (Auto) 8.0 % 14.0 % Monocytes (%) (Auto) 5.5 % 9.6 % Neutrophils # (Auto) 9.5 10^3/uL 5.6 10^3/uL Lymphocytes # (Auto) 0.9 10^3/uL 1.1 10^3/uL Monocytes # (Auto) 0.6 10^3/uL 0.7 10^3/uL Absolute Immature Granulocyte (auto 0.07 10^3 u/L 0.04 10^3 u/L Eosinophils % 1.4 % 3.4 % Basophils % 0.1 % 0.1 % Basophils # 0.0 10^3/uL 0.0 10^3/uL Eosinophil Count 0.2 10^3/uL 0.3 10^3/uL Prothrombin Time 11.9 SEC Prothrombin Time INR (Non-Therap) 1.2 Activated Partial Thromboplast Time 29.0 SEC Sodium Level 136 mmol/L 135 mmol/L Potassium Level 4.6 mmol/L 4.7 mmol/L Chloride Level 100.0 mmol/L 103.0 mmol/L Carbon Dioxide Level 28.8 mmol/L 23.0 mmol/L Anion Gap 11.8 13.7 Blood Urea Nitrogen 25 mg/dL 31 mg/dL Creatinine 0.95 mg/dL 1.05 mg/dL Estimated GFR () 68.3 60.9 BUN/Creatinine Ratio 26.0 29.0 Glucose Level 117 mg/dL 74 mg/dL Calcium Level 10.3 mg/dL 9.4 mg/dL Total Bilirubin 1.7 mg/dL 0.9 mg/dL Aspartate Amino Transf (AST/SGOT) 15 U/L 23 U/L Alanine Aminotransferase (ALT/SGPT) 15 U/L 13 U/L Alkaline Phosphatase 53 U/L 46 U/L Total Protein 6.1 g/dL 5.8 g/dL Albumin 2.7 g/dL 2.3 g/dL Globulin 3.4 3.5 Lipase 51 U/L Percent Immature Gran (Cell Imm) 0.60 % 0.50 % Current Medications Medications (Trade) Dose Ordered Sig/Danna PRN Reason Start Time Stop Time Status Last Admin Albuterol/ Ipratropium (Duoneb 0.5 Mg-3 Mg/3 ml Soln) 3 ml RTQ6 PRN SHORTNESS OF BREATH 06/08/18 10:30 07/08/18 10:29 Atorvastatin Calcium (Lipitor) 40 mg HS 06/08/18 21:00 07/08/18 20:59 06/08/18 21:15 Carvedilol (Coreg) 12.5 mg BID 06/08/18 10:30 07/08/18 10:29 06/08/18 21:15 Levothyroxine Sodium (Synthroid) 50 mcg ACB 06/09/18 06:30 07/09/18 06:29 06/09/18 06:00 Metronidazole (Flagyl) 500 mg TID 06/08/18 15:00 07/08/18 14:59 06/08/18 21:15 Ondansetron HCl (Zofran) 4 mg Q4H PRN NAUSEA / VOMITING 06/08/18 10:30 07/08/18 10:29 Pantoprazole Sodium (Protonix) 40 mg DAILY 06/09/18 09:00 07/09/18 08:59 Piperacillin Sod/ Tazobactam Sod 3.375 gm/Sodium Chloride 100 ml @ 100 mls/hr Q6H 06/08/18 10:30 07/08/18 10:29 06/09/18 04:24 Prednisone (Prednisone) 5 mg DAILY 06/09/18 09:00 07/09/18 08:59 Sodium Chloride 1,000 ml @ 75 mls/hr [id number] 06/08/18 16:00 07/08/18 15:59 06/09/18 02:33 Tramadol HCl (Ultram) 50 mg Q4HR PRN PAIN 06/08/18 10:30 07/08/18 10:29 06/09/18 06:11 Sepsis Infection Criteria Pres: Suspected Infection LEVEL 1 SEPSIS INFECTION CRITE: ABX Therapy LEVEL 2-SIRS (LIST ALL THAT AP: None/Not assessed Cardiovascular Evidence: Not Assessed or None Hematologic Evidence: None/Not assessed Hepatic Evidence: None/Not assessed Metabolic Evidence: None/Not assessed Neurological Evidence: None/Not assessed Respiratory Evidence: Need for O2 to keep>90%, O2 SAT<90room air Renal Evidence: None/Not assessed O2 Sat by Pulse Oximetry: 98 Oxygen Flow Rate: 2.00 Assessment/Plan Assessment/Plan Assessment/Plan 1. Colitis: cont IV/PO abx. Patient slowly improving. Pain controlled, diarrhea improved. Patient still with poor appetite. Likely d/c in AM. 2. Afib: cont Eliquis, BB 3. Hypothyroidism: cont Synthroid 4. Lupus: continue daily prednisone. No acute issues currently. 5. PPx: Eliquis, PPI 6. Dehydration: BUN/Cr over 30. Encourage PO intake, cont gentle IVF. BIMAL RAINES MD Jun 09, 2018 07:59
[2018-06-09] MEDS: ELIQUIS PO SCH ×2 (08:48→21:35)
[2018-06-09] MEDS: PROTONIX PO SCH (08:48)
[2018-06-09] MEDS: PREDNISONE PO SCH (08:48)
[2018-06-09] MEDS: FLAGYL PO SCH ×3 (08:48→21:34)
[2018-06-09] MEDS: COREG PO SCH ×2 (08:49→21:35)
[2018-06-09] MEDS ORDERED: PROTONIX PO SCH (09:00)
--- NOTE | 2018-06-09 09:22 | NUR ---
SCHEDULED MEDS GIVEN
--- NOTE | 2018-06-09 09:22 | NUR ---
HERE TO VISIT
--- NOTE | 2018-06-09 09:30 | NUR ---
DISCHARGE PLAN CASE MANAGEMENT SPOKE WITH PATIENT AND CONCERNING DISCHARGE PLAN AND NEEDS. 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 HER LIVES AT HOME AND SHE HAS DME INCLUDING WALKER, CANE, SHOWER CHAIR, ELEVATED TOILET SEAT. SHE WAS PREVIOUSLY WITH [facility] BEFORE SHE BEFORE SHE WENT BACK TO [facility]. DR. LOPES IN [place] IS HER PCP. SHE HAS FINANCIAL ABILITY TO PAY FOR MEDICATIONS UPON DISCHARGE IF NEEDED. DISCHARGE GOAL IS TO DISCHARGE BACK TO [facility] FOR SKILLED THERAPY. CM WILL CONTINUE TO FOLLOW FOR DISCHARGE NEEDS.
[2018-06-09 12:08] VITALS: BP 98/70
--- NOTE | 2018-06-09 14:00 | NUR ---
back to bed voided 200 . Pericare given
--- NOTE | 2018-06-09 14:58 | NUR ---
STATUS RESTING COMF IN BED AT THIS TIME.
[2018-06-09 16:16] VITALS: BP 156/59
[2018-06-09 20:21] VITALS: BP 142/74
[2018-06-09] MEDS ORDERED: COLACE PO PRN (21:30)
--- NOTE | 2018-06-09 21:30 | NUR ---
MEDICATION PATIENT REQUESTED A STOOL SOFTENER. CONTACTED DR RAINES. ORDER RECEIVED FOR 100 MG TABLET COLACE BID PRN.
[2018-06-09] MEDS: LIPITOR PO SCH (21:35)
[2018-06-10 01:00] VITALS: BP 150/89
[2018-06-10] MEDS: ZOSYN 3.375 GRAM VIAL 3.375 GM in NS 100ML 100 ML IV SCH ×2 (03:45→10:14)
[2018-06-10 04:11] VITALS: BP 160/92
[2018-06-10 05:05] LABS: EOSINOPHIL # 0.1 10^3/uL (0.0-0.2); EOSINOPHIL % 1.3 % (0.0-5.0); HEMOGLOBIN 11.3 g/dL (12.0-15.0); LYMPHOCYTES # 1.4 10^3/uL (1.0-4.8); LYMPHOCYTES % 22.4 % (24.0-44.0); MEAN CELL HGB 35.9 pg (26-34); MEAN CELL HGB CONCENTRATION 32.9 g/dL (33-37); MEAN CORP VOLUME 108.9 fL (78-100); MEAN PLATELET VOLUME 10.9 fL (7.8-11.0); MONOCYTES # 0.6 10^3/uL (0.3-0.8); MONOCYTES % 9.7 % (5.0-12.0); NEUTROPHIL # 4.1 10^3/uL (1.8-7.7); NEUTROPHILS % 66.1 % (41.0-85.0); WHITE BLOOD CELL 6.2 10^3/uL (4.5-11.0)
[2018-06-10 05:30] LABS: CARBON DIOXIDE 23.3 mmol/L (20.0-32)
[2018-06-10] MEDS: SYNTHROID PO SCH (05:53)
[2018-06-10] MEDS: ULTRAM PO PRN (06:06)
[2018-06-10 07:21] VITALS: BP 156/90
[2018-06-10] MEDS ORDERED: METR250T PO (08:11)
[2018-06-10] MEDS ORDERED: DOCU-123 PO (08:11)
--- NOTE | 2018-06-10 08:16 | PRM.DC ---
Discharge Summary Date of Discharge: Jun 10, 2018 Time of Request to Discharge: 08:00 Reason for Visit: Diarrhea, abdominal pain Hospital Course Patient admitted from ER after patient had severe diarrhea following laxative given @ SNF for constipation. Patient found to have Diverticulitis v. Colitis on CT scan. Patient treated with IV/PO abx, IVF, and pain control with improvement in symptoms. Patient pain is controlled and she is tolerating PO. Patient medically cleared to d/c back to SNF with 5 more days of PO abx. Patient History: FH: heart disease 32 MOTHER, Onset:60 years & older 33 FATHER, Onset:60 years & older G8 BROTHER, Onset:60 years & older General: Alert, Oriented X3, Cooperative, No acute distress HEENT: Atraumatic, PERRLA, EOMI Neck: Supple, No JVD Lungs: Clear to auscultation, Normal air movement Heart: Regular rate, Normal S1, Normal S2, No murmurs Abdomen: Normal bowel sounds, Soft, No tenderness Extremities: No edema, Normal pulses, No tenderness/swelling Skin: No rashes, No breakdown, No significant lesion Neuro: Normal speech, Strength at 5/5 X4 ext, Normal tone, Sensation intact, Cranial nerves 3-12 NL Psych/Mental Status: Mental status NL, Mood NL Scheduled Apixaban (Eliquis), 2.5 MG PO BID, (Reported) Atorvastatin 40MG (Lipitor 40MG), 1 TAB PO HS, (Reported) Carvedilol 12.5MG (Coreg 12.MG), 1 TAB PO BID, (Reported) Fluticasone/Vilanterol (Breo Ellipta 100-25 Mcg INH), 1 EACH IH DAILY24, ( Reported) Levothyroxine Sodium (Levothyroxine Sodium), 1 TAB PO DAILY, (Reported) Lisinopril (Lisinopril), 1 TAB PO DAILY, (Reported) Melatonin (Melatonin), 1 MG PO HS, (Reported) Metronidazole (Flagyl), 500 MG PO TID Pantoprazole Sodium (Pantoprazole Sodium), 40 MG PO DAILY, (Reported) Prednisone (Prednisone), 5 MG PO DAILY, (Reported) Scheduled PRN Docusate Sodium (Colace), 100 MG PO BID PRN for CONSTIPATION Tramadol Hcl (Tramadol Hcl), 1 TAB PO Q4HR PRN for PAIN, (Reported) Tramadol Hcl/Acetaminophen (Tramadol-Acetaminophn 37.5-325), 1 EACH PO PRN PRN for PAIN SEVERE, (Reported) Discontinued Medications Azathioprine (Azathioprine), 1 TAB PO BID, (Reported) Discontinued Reason: No Longer Taking Budesonide/Formoterol Fumarate (Symbicort 160-4.5 Mcg Inhaler), 1 PUFF IH BID, ( Reported) Discontinued Reason: No Longer Taking Nystatin (Nystatin), 100,000 UNIT PO QID Discontinued Reason: No Longer Taking Rosuvastatin 20MG (Crestor 20MG), 1 TAB PO DAILY, (Reported) Discontinued Reason: No Longer Taking Sepsis Evaluation @ Discharge Vital Sign - Last 24 Hours 06/08/18 06/08/18 06/08/18 06/08/18 08:50 09:00 09:28 09:29 Temp 97.9 Pulse 73 62 73 Resp 16 18 16 16 B/P (MAP) 113/48 (69) Pulse Ox 95 95 95 95 O2 Delivery Nasal Canula Nasal Canula Nasal Cannula O2 Flow Rate 2.00 2.00 FiO2 28 06/08/18 06/08/18 06/08/18 06/08/18 09:36 10:30 14:40 15:00 Temp 97.4 97.4 Pulse 72 65 95 Resp 16 18 B/P (MAP) 113/48 96/55 (69) Pulse Ox 95 95 O2 Delivery Nasal Cannula Nasal Canula O2 Flow Rate 2.00 2.00 06/08/18 06/08/18 06/08/18 06/08/18 17:54 20:55 21:04 21:15 Temp 98.9 98.9 Pulse 64 64 Resp 16 B/P (MAP) 103/56 (72) 147/70 (95) 147/70 Pulse Ox 99 O2 Delivery Nasal Canula Nasal Cannula O2 Flow Rate 2.00 2.00 06/08/18 06/08/18 06/09/18 06/09/18 21:24 23:43 04:06 07:48 Temp 97.2 98.2 97.6 97.2 98.2 97.6 Pulse 75 68 66 70 Resp 18 16 18 18 B/P (MAP) 113/56 (75) 152/79 (103) 139/87 (104) Pulse Ox 98 98 98 98 O2 Delivery Nasal Cannula Nasal Canula Nasal Canula Nasal Canula O2 Flow Rate 2.00 2.00 2.00 2.00 Intake and Output 06/08/18 06/08/18 06/09/18 15:00 23:00 07:00 Intake Total 500 ml Output Total 650 ml Balance -150 ml Laboratory Tests Test 06/08/18 05:00 06/08/18 05:10 06/09/18 04:32 Bedside Stool Occult Blood POSITIVE White Blood Count 11.2 10^3/uL 7.7 10^3/uL Red Blood Count 3.61 10^6/uL 3.30 10^6/uL Hemoglobin 13.2 g/dL 12.0 g/dL Hematocrit 39.1 % 35.8 % Mean Corpuscular Volume 108.3 fL 108.5 fL Mean Corpuscular Hemoglobin 36.6 pg 36.4 pg Mean Corpuscular Hemoglobin Concent 33.8 g/dL 33.5 g/dL Red Cell Distribution Width 14.9 % 15.1 % Platelet Count 196 10^3/uL 165 10^3/uL Mean Platelet Volume 10.3 fL 10.7 fL Neutrophils (%) (Auto) 84.4 % 72.4 % Lymphocytes (%) (Auto) 8.0 % 14.0 % Monocytes (%) (Auto) 5.5 % 9.6 % Neutrophils # (Auto) 9.5 10^3/uL 5.6 10^3/uL Lymphocytes # (Auto) 0.9 10^3/uL 1.1 10^3/uL Monocytes # (Auto) 0.6 10^3/uL 0.7 10^3/uL Absolute Immature Granulocyte (auto 0.07 10^3 u/L 0.04 10^3 u/L Eosinophils % 1.4 % 3.4 % Basophils % 0.1 % 0.1 % Basophils # 0.0 10^3/uL 0.0 10^3/uL Eosinophil Count 0.2 10^3/uL 0.3 10^3/uL Prothrombin Time 11.9 SEC Prothrombin Time INR (Non-Therap) 1.2 Activated Partial Thromboplast Time 29.0 SEC Sodium Level 136 mmol/L 135 mmol/L Potassium Level 4.6 mmol/L 4.7 mmol/L Chloride Level 100.0 mmol/L 103.0 mmol/L Carbon Dioxide Level 28.8 mmol/L 23.0 mmol/L Anion Gap 11.8 13.7 Blood Urea Nitrogen 25 mg/dL 31 mg/dL Creatinine 0.95 mg/dL 1.05 mg/dL Estimated GFR () 68.3 60.9 BUN/Creatinine Ratio 26.0 29.0 Glucose Level 117 mg/dL 74 mg/dL Calcium Level 10.3 mg/dL 9.4 mg/dL Total Bilirubin 1.7 mg/dL 0.9 mg/dL Aspartate Amino Transf (AST/SGOT) 15 U/L 23 U/L Alanine Aminotransferase (ALT/SGPT) 15 U/L 13 U/L Alkaline Phosphatase 53 U/L 46 U/L Total Protein 6.1 g/dL 5.8 g/dL Albumin 2.7 g/dL 2.3 g/dL Globulin 3.4 3.5 Lipase 51 U/L Percent Immature Gran (Cell Imm) 0.60 % 0.50 % Current Medications Medications (Trade) Dose Ordered Sig/Danna PRN Reason Start Time Stop Time Status Last Admin Albuterol/ Ipratropium (Duoneb 0.5 Mg-3 Mg/3 ml Soln) 3 ml RTQ6 PRN SHORTNESS OF BREATH 06/08/18 10:30 07/08/18 10:29 Atorvastatin Calcium (Lipitor) 40 mg HS 06/08/18 21:00 07/08/18 20:59 06/08/18 21:15 Carvedilol (Coreg) 12.5 mg BID 06/08/18 10:30 07/08/18 10:29 06/08/18 21:15 Levothyroxine Sodium (Synthroid) 50 mcg ACB 06/09/18 06:30 07/09/18 06:29 06/09/18 06:00 Metronidazole (Flagyl) 500 mg TID 06/08/18 15:00 07/08/18 14:59 06/08/18 21:15 Ondansetron HCl (Zofran) 4 mg Q4H PRN NAUSEA / VOMITING 06/08/18 10:30 07/08/18 10:29 Pantoprazole Sodium (Protonix) 40 mg DAILY 06/09/18 09:00 07/09/18 08:59 Piperacillin Sod/ Tazobactam Sod 3.375 gm/Sodium Chloride 100 ml @ 100 mls/hr Q6H 06/08/18 10:30 07/08/18 10:29 06/09/18 04:24 Prednisone (Prednisone) 5 mg DAILY 06/09/18 09:00 07/09/18 08:59 Sodium Chloride 1,000 ml @ 75 mls/hr [id number] 06/08/18 16:00 07/08/18 15:59 06/09/18 02:33 Tramadol HCl (Ultram) 50 mg Q4HR PRN PAIN 06/08/18 10:30 07/08/18 10:29 06/09/18 06:11 Course Sepsis Screening Results: Posi: POSITIVE Sepsis Qualifier/Stage: SEPSIS RISK Duration or Total Time Spent w: 60 mins Vitals & review Data Vital Sign - Last 24 Hours 06/08/18 06/08/18 06/08/18 06/08/18 08:50 09:00 09:28 09:29 Temp 97.9 Pulse 73 62 73 Resp 16 18 16 16 B/P (MAP) 113/48 (69) Pulse Ox 95 95 95 95 O2 Delivery Nasal Canula Nasal Canula Nasal Cannula O2 Flow Rate 2.00 2.00 FiO2 28 06/08/18 06/08/18 06/08/18 06/08/18 09:36 10:30 14:40 15:00 Temp 97.4 97.4 Pulse 72 65 95 Resp 16 18 B/P (MAP) 113/48 96/55 (69) Pulse Ox 95 95 O2 Delivery Nasal Cannula Nasal Canula O2 Flow Rate 2.00 2.00 06/08/18 06/08/18 06/08/18 06/08/18 17:54 20:55 21:04 21:15 Temp 98.9 98.9 Pulse 64 64 Resp 16 B/P (MAP) 103/56 (72) 147/70 (95) 147/70 Pulse Ox 99 O2 Delivery Nasal Canula Nasal Cannula O2 Flow Rate 2.00 2.00 06/08/18 06/08/18 06/09/18 06/09/18 21:24 23:43 04:06 07:48 Temp 97.2 98.2 97.6 97.2 98.2 97.6 Pulse 75 68 66 70 Resp 18 16 18 18 B/P (MAP) 113/56 (75) 152/79 (103) 139/87 (104) Pulse Ox 98 98 98 98 O2 Delivery Nasal Cannula Nasal Canula Nasal Canula Nasal Canula O2 Flow Rate 2.00 2.00 2.00 2.00 Intake and Output 06/08/18 06/08/18 06/09/18 15:00 23:00 07:00 Intake Total 500 ml Output Total 650 ml Balance -150 ml Laboratory Tests Test 06/08/18 05:00 06/08/18 05:10 06/09/18 04:32 Bedside Stool Occult Blood POSITIVE White Blood Count 11.2 10^3/uL 7.7 10^3/uL Red Blood Count 3.61 10^6/uL 3.30 10^6/uL Hemoglobin 13.2 g/dL 12.0 g/dL Hematocrit 39.1 % 35.8 % Mean Corpuscular Volume 108.3 fL 108.5 fL Mean Corpuscular Hemoglobin 36.6 pg 36.4 pg Mean Corpuscular Hemoglobin Concent 33.8 g/dL 33.5 g/dL Red Cell Distribution Width 14.9 % 15.1 % Platelet Count 196 10^3/uL 165 10^3/uL Mean Platelet Volume 10.3 fL 10.7 fL Neutrophils (%) (Auto) 84.4 % 72.4 % Lymphocytes (%) (Auto) 8.0 % 14.0 % Monocytes (%) (Auto) 5.5 % 9.6 % Neutrophils # (Auto) 9.5 10^3/uL 5.6 10^3/uL Lymphocytes # (Auto) 0.9 10^3/uL 1.1 10^3/uL Monocytes # (Auto) 0.6 10^3/uL 0.7 10^3/uL Absolute Immature Granulocyte (auto 0.07 10^3 u/L 0.04 10^3 u/L Eosinophils % 1.4 % 3.4 % Basophils % 0.1 % 0.1 % Basophils # 0.0 10^3/uL 0.0 10^3/uL Eosinophil Count 0.2 10^3/uL 0.3 10^3/uL Prothrombin Time 11.9 SEC Prothrombin Time INR (Non-Therap) 1.2 Activated Partial Thromboplast Time 29.0 SEC Sodium Level 136 mmol/L 135 mmol/L Potassium Level 4.6 mmol/L 4.7 mmol/L Chloride Level 100.0 mmol/L 103.0 mmol/L Carbon Dioxide Level 28.8 mmol/L 23.0 mmol/L Anion Gap 11.8 13.7 Blood Urea Nitrogen 25 mg/dL 31 mg/dL Creatinine 0.95 mg/dL 1.05 mg/dL Estimated GFR () 68.3 60.9 BUN/Creatinine Ratio 26.0 29.0 Glucose Level 117 mg/dL 74 mg/dL Calcium Level 10.3 mg/dL 9.4 mg/dL Total Bilirubin 1.7 mg/dL 0.9 mg/dL Aspartate Amino Transf (AST/SGOT) 15 U/L 23 U/L Alanine Aminotransferase (ALT/SGPT) 15 U/L 13 U/L Alkaline Phosphatase 53 U/L 46 U/L Total Protein 6.1 g/dL 5.8 g/dL Albumin 2.7 g/dL 2.3 g/dL Globulin 3.4 3.5 Lipase 51 U/L Percent Immature Gran (Cell Imm) 0.60 % 0.50 % Current Medications Medications (Trade) Dose Ordered Sig/Danna PRN Reason Start Time Stop Time Status Last Admin Albuterol/ Ipratropium (Duoneb 0.5 Mg-3 Mg/3 ml Soln) 3 ml RTQ6 PRN SHORTNESS OF BREATH 06/08/18 10:30 07/08/18 10:29 Atorvastatin Calcium (Lipitor) 40 mg HS 06/08/18 21:00 07/08/18 20:59 06/08/18 21:15 Carvedilol (Coreg) 12.5 mg BID 06/08/18 10:30 07/08/18 10:29 06/08/18 21:15 Levothyroxine Sodium (Synthroid) 50 mcg ACB 06/09/18 06:30 07/09/18 06:29 06/09/18 06:00 Metronidazole (Flagyl) 500 mg TID 06/08/18 15:00 07/08/18 14:59 06/08/18 21:15 Ondansetron HCl (Zofran) 4 mg Q4H PRN NAUSEA / VOMITING 06/08/18 10:30 07/08/18 10:29 Pantoprazole Sodium (Protonix) 40 mg DAILY 06/09/18 09:00 07/09/18 08:59 Piperacillin Sod/ Tazobactam Sod 3.375 gm/Sodium Chloride 100 ml @ 100 mls/hr Q6H 06/08/18 10:30 07/08/18 10:29 06/09/18 04:24 Prednisone (Prednisone) 5 mg DAILY 06/09/18 09:00 07/09/18 08:59 Sodium Chloride 1,000 ml @ 75 mls/hr [id number] 06/08/18 16:00 07/08/18 15:59 06/09/18 02:33 Tramadol HCl (Ultram) 50 mg Q4HR PRN PAIN 06/08/18 10:30 07/08/18 10:29 06/09/18 06:11 Sepsis Infection Criteria Pres: Suspected Infection LEVEL 1 SEPSIS INFECTION CRITE: ABX Therapy LEVEL 2-SIRS (LIST ALL THAT AP: None/Not assessed Cardiovascular Evidence: Not Assessed or None Hematologic Evidence: None/Not assessed Hepatic Evidence: None/Not assessed Metabolic Evidence: None/Not assessed Neurological Evidence: None/Not assessed Respiratory Evidence: Need for O2 to keep>90%, O2 SAT<90room air Renal Evidence: None/Not assessed O2 Sat by Pulse Oximetry: 100 Oxygen Flow Rate: 2.00 Plan Discharge Date: Jun 10, 2018 Dicharge DX: Colitis Discharge Disposition: Stable Plan ok to d/c to SNF medications: per med rec list Diet: AHA Activity: as tolerated F/U with PCP within 1-2 weeks Return to care for worsening/concerning symptoms. BIMAL RAINES MD Jun 10, 2018 08:16
[2018-06-10] MEDS: PREDNISONE PO SCH (08:35)
[2018-06-10] MEDS: ELIQUIS PO SCH (08:35)
[2018-06-10] MEDS: COREG PO SCH (08:35)
[2018-06-10] MEDS: PROTONIX PO SCH (08:35)
[2018-06-10] MEDS: FLAGYL PO SCH (08:35)
[2018-06-10] MEDS: NS 1000ML 1,000 ML IV SCH (08:37)
[2018-06-10 10:56] VITALS: BP 135/81
[2018-06-10 11:25] VITALS: BP 135/81
--- NOTE | 2018-06-10 11:25 | NUR ---
DISCHARGED Pt DISCHARGED TO [facility] FROM THE HOSPITAL, THIS NURSE CALLED NURSE CHANDRIKA STEPHENSON LVN GAVE TELEPHONE REPORT ON Pt, DISCHARGE PACKED HANDED TO FACILITY STAFF MS BARRERA. IV D/C. Pt WAS ASSISTED IN WC BY HOLLY ALEXIS MAIN EXIT ACCOMPANIED BY FAMILY MEMBER.
== END 2018-06-10 11:13 | DRG 392 ==
LOC: ER 04:45 → EDBD 04:45 → ICU 07:39 → MS 08:38 → EDPENDDISDT 06-10 08:35 → EDPENDDISTM 06-10 11:25
PROVIDERS: ADMIT Family Medicine; ATTEND Family Medicine
DX: K57.92 Diverticulitis of intestine, part unspecified, without perforation or abscess without bleeding (principal); K92.1 Melena; E44.0 Moderate protein-calorie malnutrition; K52.9 Noninfective gastroenteritis and colitis, unspecified; E86.0 Dehydration; K59.00 Constipation, unspecified; I50.9 Heart failure, unspecified; I48.91 Unspecified atrial fibrillation; E78.5 Hyperlipidemia, unspecified; M32.9 Systemic lupus erythematosus, unspecified; E03.9 Hypothyroidism, unspecified; Z68.22 Body mass index [BMI] 22.0-22.9, adult; Z88.1 Allergy status to other antibiotic agents; Z88.5 Allergy status to narcotic agent; Z88.8 Allergy status to other drugs, medicaments and biological substances; Z90.710 Acquired absence of both cervix and uterus; Z79.51 Long term (current) use of inhaled steroids
CPT/HCPCS: 36415; 74176; 80053; 82272; 83690; 85025; 85610; 85730; 99285; G0378; J2543; J3490; J7030; J7040; J7050; J7512

== ENCOUNTER → 2018-06-17 | Outpatient (CLI) | payer MEDICARE, OTHER ==
[~2018-06-17] MED LIST changes: +ATOR40TA PO; +DOCU-123 PO; +FLUT1AER IH; +METR250T PO; +TRAM50TA PO
[2018-06-17 15:06] LABS: CALCIUM 9.9 mg/dL (8.4-10.5); CARBON DIOXIDE 29.5 mmol/L (20.0-32)
== END | disposition home or self-care (01) ==
LOC: NPLAB 14:28
PROVIDERS: ATTEND Family Medicine
DX: K57.92 Diverticulitis of intestine, part unspecified, without perforation or abscess without bleeding (principal); K58.9 Irritable bowel syndrome, unspecified
CPT/HCPCS: 80048; 82150; 83690

== ENCOUNTER → 2019-03-11 | Outpatient (CLI) | payer MEDICARE, OTHER ==
[~2019-03-11] MED LIST changes: -DIGO125T PO; +DIGO125T3 PO; +MELA3TAB PO; -MELA3TAB2 PO
[2019-03-11 11:51] LABS: CALCIUM 10.3 mg/dL (8.4-10.5); CARBON DIOXIDE 28.3 mmol/L (20.0-32)
== END | disposition home or self-care (01) ==
LOC: LAB 11:23
PROVIDERS: ATTEND Nurse Practitioner Family
DX: I27.20 Pulmonary hypertension, unspecified (principal)
CPT/HCPCS: 36415; 80048

== ENCOUNTER 2019-10-04 12:53 | Emergency (ER) | payer MEDICARE, OTHER ==
[~2019-10-04] VITALS: Ht 152.4 cm; Wt 48.5 kg
[2019-10-04 12:53] VITALS: BP 149/58
[~2019-10-04 12:53] MED LIST changes: +AMIO200T4 PO; -ASPI-484 PO; +ASPI-485 PO; +AZAT75TA PO; +FURO40TA4 PO; -MELA3TAB PO; +MELA3TAB31 PO; +METO25TA4 PO; +METO50TA6 PO; -PANT40TA5 PO; +PANT40TA6 PO
--- NOTE | 2019-10-04 13:11 | ER.PDOC ---
General Chief Complaint: Requesting Medical Care Stated Complaint: FALL Time seen by MD: 13:11 Source: patient Exam Limitations: no limitations History of Present Illness Initial Comments PAINFUL L LOWER RIBS ,LOWER T -SPINE Timing/Duration: 24 hours Where: home Context: fall Location of pain/injury: chest, mid back Quality/Severity: moderate Allergies: Coded Allergies: chlorpheniramine (Verified Allergy, Mild, 05/24/16) hydrocodone (Verified Allergy, Mild, 05/24/16) moxifloxacin (Verified Allergy, Mild, 05/24/16) cefuroxime (Verified Allergy, Unknown, 05/27/19) clindamycin (Verified Allergy, Unknown, 05/27/19) guaifenesin (Verified Allergy, Unknown, 05/27/19) Home Meds Active Scripts Metoprolol Tartrate 50MG (LOPRESSER 50MG) 50 Mg Tablet, 100 MG PO BID for HYPERTENSION, #120 TAB 1 Refill Prov:SINCERE GUSTAFSON MD 05/30/19 Amiodarone Hcl (CORDARONE) 200 Mg Tablet, 200 MG PO BID, #60 TAB 1 Refill Prov:SINCERE GUSTAFSON MD 05/30/19 Docusate Sodium (COLACE) 100 Mg Capsule, 100 MG PO BID PRN for CONSTIPATION for 30 Days, #60 CAPSULE 0 Refills Prov:BIMAL RAINES MD 06/10/18 Reported Medications Azathioprine (AZASAN) 75 Mg Tablet, 50 MG PO BID, TAB 05/27/19 Rosuvastatin 20MG (CRESTOR 20MG) 20 Mg Tablet, 1 TAB PO DAILY, #30 TAB 5 Refills 05/27/19 Furosemide (FUROSEMIDE) 40 Mg Tablet, 1 TAB PO DAILY, #30 TAB 5 Refills 05/27/19 Apixaban (Eliquis) 2.5 Mg Tablet, 2.5 MG PO BID, TABLET 05/31/18 Pantoprazole Sodium (PANTOPRAZOLE SODIUM) 40 Mg Tablet.dr, 40 MG PO DAILY 05/24/16 Prednisone (PREDNISONE) 5 Mg Tab.ds.pk, 5 MG PO DAILY 01/24/16 Lisinopril (LISINOPRIL) 20 Mg Tablet, 10 MG PO DAILY, #30 TAB 5 Refills 01/24/16 Levothyroxine Sodium (LEVOTHYROXINE SODIUM) 50 Mcg Tablet, 1 TAB PO DAILY, #30 TAB 5 Refills 01/24/16 Past Medical History Medical History: cardiac problems, hypertension Surgical History: hysterectomy, pacemaker/ICD LMP (females 10-50): postmenopause Social History Drug Use: none Reviewed Nursing Reviewed: Vital Signs, Abn. Noted Review of Systems All Other Systems: Reviewed and Negative Physical Exam General Appearance: No Apparent Distress, WD/WN Head: No Evidence of Injury Eyes: bilateral eye normal inspection, bilateral eye PERRL, bilateral eye EOMI Ears, Nose, Throat: Hearing Grossly Normal, No Evidence of ENT Injury, No Dental Injury Respiratory: ecchymosis, tenderness Cardiovascular/Chest: Normal Peripheral Pulses, Regular Rate, Rhythm, No Edema, No Gallop, No JVD, No Murmur Gastrointestinal: Normal Bowel Sounds, No Organomegaly, No Pulsatile Mass, Non Tender, Soft Back: CVA Tenderness (R), Muscle Spasm, Vertebral Tenderness Extremities: No Evidence of Injury, Normal Range of Motion, Non-Tender, No Pedal Edema 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 (10/04/19 13:09) Xr Pelvis (10/04/19 14:41) Urinalysis (10/04/19 14:56) Tramadol Hcl (Ultram) (10/04/19 15:25) Urinalysis (10/04/19 15:26) Tramadol Hcl (Ultram) (10/04/19 15:42) Ondansetron (Zofran Odt) (10/04/19 16:26) Ondansetron (Zofran Odt) (10/04/19 16:32) Vital Signs Date Time Temp Pulse Resp B/P (MAP) Pulse Ox O2 Delivery O2 Flow Rate FiO2 10/04/19 12:53 98.7 60 17 10/04/19 12:53 98.7 60 17 95 10/04/19 12:53 98.7 60 17 149/58 (88) 95 Room Air Administered Medications Medications (Trade) Dose Ordered Sig/Danna Route PRN Reason Start Time Stop Time Status Last Admin Dose Admin Tramadol HCl (Ultram) 50 mg STAT STAT PO 10/04/19 15:25 10/04/19 15:28 DC 10/04/19 15:53 50 MG Laboratory Tests Test 10/04/19 13:34 10/04/19 15:10 White Blood Count 7.4 10^3/uL (4.5-11.0) Red Blood Count 3.57 10^6/uL (4.00-5.20) L Hemoglobin 13.2 g/dL (12.0-15.0) Hematocrit 39.4 % (36.0-46.0) Mean Corpuscular Volume 110.4 fL (78-100) H Mean Corpuscular Hemoglobin 37.0 pg (26-34) H Mean Corpuscular Hemoglobin Concent 33.5 g/dL (33-36.5) Red Cell Distribution Width 15.3 % (11.5-14.5) H Platelet Count 222 10^3/uL (150-400) Mean Platelet Volume 10.1 fL (7.8-11.0) Neutrophils (%) (Auto) 62.1 % (41.0-85.0) Lymphocytes (%) (Auto) 31.2 % (24.0-44.0) Monocytes (%) (Auto) 5.4 % (5.0-12.0) Neutrophils # (Auto) 4.6 10^3/uL (1.8-7.7) Lymphocytes # (Auto) 2.31 10^3/uL1 (1.0-4.8) Monocytes # (Auto) 0.4 10^3/uL (0.3-0.8) Absolute Immature Granulocyte (auto 0.05 10^3 u/L (0-2) Absolute Eosinophils (auto) 0.0 10^3/uL (0.0-0.2) Immature Granulocytes % 0.70 % (0.00-0.50) H Eosinophils % 0.3 % (0.0-5.0) Basophils % 0.3 % (0.0-0.2) H Basophils # 0.0 10^3/uL (0.0-0.1) Prothrombin Time 10.8 SEC (9.3-11.3) Prothrombin Time INR (Non-Therap) 1.1 Activated Partial Thromboplast Time 25.5 SEC (24.67-30.72) Sodium Level 138 mmol/L (132-145) Potassium Level 4.5 mmol/L (3.6-5.2) Chloride Level 103.0 mmol/L (96-109) Carbon Dioxide Level 25.5 mmol/L (20.0-32) Anion Gap 14.0 Blood Urea Nitrogen 23 mg/dL (7-18) H Creatinine 1.24 mg/dL (0.59-1.40) Estimated GFR () 50.0 (>/=60) Est GFR (CKD-EPI)(Non-Afr [place]) 41.3 (>/=60) BUN/Creatinine Ratio 18.0 Glucose Level 104 mg/dL (70-110) Calcium Level 9.3 mg/dL (8.4-10.5) Total Bilirubin 0.7 mg/dL (0.2-1.0) Aspartate Amino Transferase (AST) 32 U/L (0-35) Alanine Aminotransferase (ALT) 24 U/L (12-78) Alkaline Phosphatase 218 U/L (50-136) H Total Creatine Kinase 17 U/L (26-192) L Creatine Kinase MB < 0.5 ng/mL (0.5-3.6) L Troponin I < 0.02 ng/mL (0.00-0.05) Pro-B-Type Natriuretic Peptide 1908 pg/mL (0-450) H Total Protein 6.4 g/dL (6.4-8.2) Albumin 3.2 g/dL (3.4-5.0) L Globulin 3.2 Urine Collection Type CATH Urine Color YELLOW (YELLOW) Urine Appearance CLEAR (CLEAR) Urine Bilirubin NEGATIVE MG/DL (NEGATIVE) Urine Ketones NEGATIVE (NEGATIVE) Urine Specific [place] 1.015 (1.005-1.035) Urine pH 5.0 (5.0-6.0) Urine Protein NEGATIVE (NEGATIVE) Urine Urobilinogen NEGATIVE (NEGATIVE) Urine Nitrate NEGATIVE (NEGATIVE) Urine Leukocyte Esterase NEGATIVE (NEGATIVE) Urine Blood NEGATIVE (NEGATIVE) Urine Glucose NORMAL (NEGATIVE) EKG/XRAY/CT/US EKG: NSR, no ST T wave changes Departure Time of Disposition: 17:00 Disposition: 01 HOME, SELF-CARE Impression: Primary Impression: Contusion, chest wall Additional Impression: Lumbar radiculopathy Condition: Improved Referrals: ROSHAN LOPES (PCP) PRIMARY CARE PROVIDER Duration or Time Spent with Pa: Lavernem TRINH REYEZ MD Oct 04, 2019 13:11
--- NOTE | 2019-10-04 13:32 | PCM.EKG ---
[facility] Test Date: 2019-10-04 Test Time: 13:16:48 Pat Name: JESSY PIZARRO Department: Room: Gender: F Family Psychologist: RT : 1935 Requested By: INOCENCIO WILKES Order Number: [id number] Reading MD: Inocencio Wilkes Measurements Intervals [place] Rate: 60 P: HI: 194 QRS: 11 QRSD: 84 T: 154 QT: 482 QTc: 482 Interpretive Statements Atrial-paced complexes Probable LVH with secondary repol abnrm Compared to ECG 05/27/2019 11:13:59 Atrial fibrillation no longer present Ventricular-paced complex(es) or rhythm no longer present Electronically Signed On 10-19-2019 8:16:25 CDT by Inocencio Wilkes Please click the below link to view image of tracing.
[2019-10-04 13:41] LABS: BASOPHIL % 0.3 % (0.0-0.2); EOSINOPHIL % 0.3 % (0.0-5.0); LYMPHOCYTES # 2.31 10^3/uL1 (1.0-4.8); LYMPHOCYTES % 31.2 % (24.0-44.0); MONOCYTES # 0.4 10^3/uL (0.3-0.8); MONOCYTES % 5.4 % (5.0-12.0); NEUTROPHIL # 4.6 10^3/uL (1.8-7.7); NEUTROPHILS % 62.1 % (41.0-85.0); PLATELET COUNT 222 10^3/uL (150-400); RED CELL DISTRIBUTION WIDTH 15.3 % (11.5-14.5)
--- NOTE | 2019-10-04 14:07 | DIREP ---
PROCEDURE:CT CHEST WITHOUT CONTRAST TECHNIQUE:Axial cuts were obtained through the chest, without intravenous contrast material. The images were viewed at lung and soft tissue settings. Sagittal and coronal reconstructions are provided. COMPARISON:[facility], CT, CT ABD/PELVIS W/O, 06/08/2018, 05:41 AM. [facility], CR, XRAY CHEST 2 VWS, 11/23/2016, 10:34 AM. [facility], CT, CT SPINE THORACIC W/O, 01/24/2016, 01:11 PM. [facility], CT, CT CHEST W/O, 01/24/2016, 12:53 PM. [facility], CR, XRAY CHEST SINGLE VW, 05/27/2019, 02:01 AM. INDICATIONS:FALL FINDINGS: LUNGS:Chronic interstitial changes. Trace left pleural effusion. No pneumothorax or infiltrate. CARDIAC:Cardiomegaly with left atrial enlargement, coronary artery and mitral annular calcifications, dual lead pacer and normal pulmonary vascularity. THORACIC AORTA:Normal. MEDIASTINUM/ALEXSANDRA:No pathologic adenopathy. CHEST WALL:Normal. LIMITED ABDOMEN:Moderate hiatal hernia. BONES:Chronic severe T8 and T10 compression fractures with progression of T10 fracture since 2019. No acute findings. THYROID:Normal. OTHER:No additional findings. CONCLUSION: 1. No acute intrathoracic abnormality. 2. Chronic T8 and T10 compression fractures. Dictated by: Li Cerda MD on 10/04/2019 at 01:43 PM
[2019-10-04 14:08] LABS: ALANINE AMINOTRANSFERASE(ML) 24 U/L (12-78); ALKALINE PHOSPHATASE 218 U/L (50-136); ASPARTATE AMINO TRANSFERASE 32 U/L (0-35); CALCIUM 9.3 mg/dL (8.4-10.5); CARBON DIOXIDE 25.5 mmol/L (20.0-32); GLUCOSE 104 mg/dL (70-110)
[2019-10-04 15:17] LABS: APPEARANCE,URINE CLEAR (CLEAR); UA COLOR YELLOW (YELLOW)
[2019-10-04 15:18] LABS: BILIRUBIN,URINE NEGATIVE (NEGATIVE); UROBILINOGEN,URINE NEGATIVE (NEGATIVE)
[2019-10-04] MEDS ORDERED: ULTRAM PO STA (15:25)
--- NOTE | 2019-10-04 15:39 | DIREP ---
PROCEDURE:XRAY PELVIS 1-2 VWS COMPARISON:None. INDICATIONS:FALL FINDINGS: BONES:Mild degenerative change. JOINTS:Normal. SOFT TISSUES:Nonobstructive bowel gas pattern. OTHER:Vascular calcifications. CONCLUSION:No acute bony abnormality noted. Dictated by: Nic Marcial M.D. on 10/04/2019 at 03:37 PM
[2019-10-04] MEDS ORDERED: ULTRAM ONE (15:42)
[2019-10-04] MEDS ORDERED: ZOFRAN ODT SL STA (16:26)
[2019-10-04] MEDS ORDERED: ZOFRAN ODT ONE (16:32)
== END 2019-10-04 17:23 | disposition home or self-care (01) ==
LOC: EDBD 12:53 → ER 12:53
DX: S20.219A Contusion of unspecified front wall of thorax, initial encounter (principal); M54.16 Radiculopathy, lumbar region; I10 Essential (primary) hypertension; Z79.01 Long term (current) use of anticoagulants; Z79.899 Other long term (current) drug therapy; Z88.1 Allergy status to other antibiotic agents; Z88.5 Allergy status to narcotic agent; Z90.710 Acquired absence of both cervix and uterus; Z95.0 Presence of cardiac pacemaker; W19.XXXA Unspecified fall, initial encounter; Y93.89 Activity, other specified; Y92.098 Other place in other non-institutional residence as the place of occurrence of the external cause; Y99.8 Other external cause status
CPT/HCPCS: 36415; 71250; 72170; 80053; 81002; 82550; 82553; 83880; 84484; 85025; 85610; 85730; 93005; 99285

== ENCOUNTER 2020-05-21 13:14 | Emergency (ER) | payer MEDICARE, OTHER ==
[~2020-05-21] VITALS: Ht 160 cm; Wt 59.0 kg
[~2020-05-21 13:14] MED LIST changes: -AMIO200T4 PO; +AMIO200T6 PO; -LISI-410 PO; +LISI20TA21 PO
[2020-05-21 13:16] VITALS: BP 189/104
[2020-05-21 13:25] VITALS: BP 189/104
[2020-05-21] MEDS ORDERED: SUBLIMAZE IV STA (13:27)
[2020-05-21] MEDS ORDERED: SUBLIMAZE ONE (13:27)
[2020-05-21] MEDS ORDERED: TRANDATE IV STA (13:38)
--- NOTE | 2020-05-21 13:39 | ER.PDOC ---
General Chief Complaint: Lower Back Pain or Injury Stated Complaint: LOWER BACK PAIN TRAVEL OUT OF US: No Time seen by MD: 13:10 Source: patient, family Exam Limitations: no limitations History of Present Illness Initial Comments This 84-year-old white female comes in with complaint of low back pain that is chronic but suddenly got worse she indicated 3 days ago when she was stretching to reach something and something popped in her low back. Her stated that it was 2 days ago. Which 1 is correct neither one of them can agree. Patient states that her back hurts with any kind of movement at all. She stated that she was unable to sleep last night because her back was so painful. She has physical therapy that comes to the house. The physical therapist was concerned about her because she is usually up dressed and ready for her PT. However, today, she was still in bed. Patient denies any specific injury except for that stretching episode. She flatly denies any falling. She also denies any radicular pain with this at all in the low back. She denies fevers chills. She denies any chest pain shortness of breath cough she denies any GI symptoms such as nausea vomiting or diarrhea. Timing/Duration: getting worse Severity: severe Modifying Factors: improves with movement Associated Symptoms: denies symptoms Allergies: Coded Allergies: chlorpheniramine (Verified Allergy, Mild, 05/24/16) hydrocodone (Verified Allergy, Mild, 05/24/16) moxifloxacin (Verified Allergy, Mild, 05/24/16) cefuroxime (Verified Allergy, Unknown, 05/27/19) clindamycin (Verified Allergy, Unknown, 05/27/19) guaifenesin (Verified Allergy, Unknown, 05/27/19) Home Meds Active Scripts Metoprolol Tartrate 50MG (LOPRESSER 50MG) 50 Mg Tablet, 100 MG PO BID for HYPERTENSION, #120 TAB 1 Refill Prov:SINCERE GUSTAFSON MD 05/30/19 Amiodarone Hcl (CORDARONE) 200 Mg Tablet, 200 MG PO BID, #60 TAB 1 Refill Prov:SINCERE GUSTAFSON MD 05/30/19 Docusate Sodium (COLACE) 100 Mg Capsule, 100 MG PO BID PRN for CONSTIPATION for 30 Days, #60 CAPSULE 0 Refills Prov:BIMAL RAINES MD 06/10/18 Reported Medications Azathioprine (AZASAN) 75 Mg Tablet, 50 MG PO BID, TAB 05/27/19 Rosuvastatin 20MG (CRESTOR 20MG) 20 Mg Tablet, 1 TAB PO DAILY, #30 TAB 5 Refills 05/27/19 Furosemide (FUROSEMIDE) 40 Mg Tablet, 1 TAB PO DAILY, #30 TAB 5 Refills 05/27/19 Apixaban (Eliquis) 2.5 Mg Tablet, 2.5 MG PO BID, TABLET 05/31/18 Pantoprazole Sodium (PANTOPRAZOLE SODIUM) 40 Mg Tablet.dr, 40 MG PO DAILY 05/24/16 Prednisone (PREDNISONE) 5 Mg Tab.ds.pk, 5 MG PO DAILY 01/24/16 Lisinopril (LISINOPRIL) 20 Mg Tablet, 10 MG PO DAILY, #30 TAB 5 Refills 01/24/16 Levothyroxine Sodium (LEVOTHYROXINE SODIUM) 50 Mcg Tablet, 1 TAB PO DAILY, #30 TAB 5 Refills 01/24/16 Past Medical History Medical History: asthma, GERD, high cholesterol, hypertension Surgical History: hysterectomy, pacemaker/ICD Social History Smoking: non-smoker Alcohol Use: none Drug Use: none Review of Systems Musculoskeletal: see HPI, back pain All Other Systems: Reviewed and Negative Physical Exam General Appearance: No Apparent Distress, WD/WN EENT: eyes nml inspection, nml ENT inspection Neck: Non-Tender, Full Range of Motion Respiratory: chest non-tender, normal breath sounds, no respiratory distress, crackles (Faint crackles with deep inspiration.) CVS: no gallop, pulses nml, other (Patient is in A. fib with a controlled rate. She does have a murmur at the right costal sternal junction suggestive of AMS. She also has a murmur at the left sternal border more suggestive of mitral regurg. Both of these murmurs are systolic murmurs) Gastrointestinal: Normal Bowel Sounds, No Organomegaly, No Pulsatile Mass, Non Tender Back: Normal Inspection, Vertebral Tenderness, Other (Patient has exquisite pain over her lumbar spinous processes. It is over 2-3 of them in the lower back. 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, No Motor/Sensory Deficits, Alert, Normal Mood/Affect, Oriented x 3 Skin: Normal Color, Warm/Dry Lymphatic: No Adenopathy Results/Orders Results/Orders Orders - VALENTINE LANDEROS MD Fentanyl Citrate/Pf (Sublimaze) (05/21/20 13:27) Cbc With Auto Diff (05/21/20 13:27) Comprehensive Metabolic Panel (05/21/20 13:27) C-Reactive Protein (05/21/20 13:27) Ct Lumbar Wo Contrast (05/21/20 13:27) Labetalol Hcl (Trandate) (05/21/20 13:38) Vital Signs Date Time Temp Pulse Resp B/P (MAP) Pulse Ox O2 Delivery O2 Flow Rate FiO2 05/21/20 13:25 97.4 65 20 189/104 (132) 93 Room Air 05/21/20 13:16 97.4 65 20 05/21/20 13:16 97.4 65 20 93 Administered Medications Medications (Trade) Dose Ordered Sig/Danna Route PRN Reason Start Time Stop Time Status Last Admin Dose Admin Fentanyl Citrate (Sublimaze) 12.5 mcg OT STAT IV 05/21/20 13:27 05/21/20 13:31 DC 05/21/20 13:33 12.5 MCG Labetalol HCl (Trandate) 10 mg OT STAT IV 05/21/20 13:38 05/21/20 13:39 UNV 05/21/20 14:01 10 MG Laboratory Tests Test 05/21/20 13:30 White Blood Count 7.5 10^3/uL (4.5-11.0) Red Blood Count 3.47 10^6/uL (4.00-5.20) L Hemoglobin 13.3 g/dL (12.0-15.0) Hematocrit 39.0 % (36.0-46.0) Mean Corpuscular Volume 112.4 fL (78-100) H Mean Corpuscular Hemoglobin 38.3 pg (26-34) H Mean Corpuscular Hemoglobin Concent 34.1 g/dL (33-36.5) Red Cell Distribution Width 16.1 % (11.5-14.5) H Platelet Count 240 10^3/uL (150-400) Mean Platelet Volume 10.2 fL (7.8-11.0) Neutrophils (%) (Auto) 45.8 % (41.0-85.0) Lymphocytes (%) (Auto) 43.0 % (24.0-44.0) Monocytes (%) (Auto) 8.8 % (5.0-12.0) Neutrophils # (Auto) 3.4 10^3/uL (1.8-7.7) Lymphocytes # (Auto) 3.21 10^3/uL1 (1.0-4.8) Monocytes # (Auto) 0.7 10^3/uL (0.3-0.8) Absolute Immature Granulocyte (auto 0.05 10^3 u/L (0-2) Absolute Eosinophils (auto) 0.1 10^3/uL (0.0-0.2) Immature Granulocytes % 0.70 % (0.00-0.50) H Eosinophils % 1.3 % (0.0-5.0) Basophils % 0.4 % (0.0-0.2) H Basophils # 0.0 10^3/uL (0.0-0.1) Sodium Level 141 mmol/L (132-145) Potassium Level 4.1 mmol/L (3.6-5.2) Chloride Level 106.0 mmol/L (96-109) Carbon Dioxide Level 26.0 mmol/L (20.0-32) Anion Gap 13.1 Blood Urea Nitrogen 23 mg/dL (7-18) H Creatinine 1.02 mg/dL (0.59-1.40) Estimated GFR () 62.6 (>/=60) Est GFR (CKD-EPI)(Non-Afr Kyrgyz) 51.8 (>/=60) BUN/Creatinine Ratio 22.0 Glucose Level 83 mg/dL (70-110) Calcium Level 9.8 mg/dL (8.4-10.5) Total Bilirubin 0.9 mg/dL (0.2-1.0) Aspartate Amino Transferase (AST) 27 U/L (0-35) Alanine Aminotransferase (ALT) 15 U/L (12-78) Alkaline Phosphatase 62 U/L (50-136) C-Reactive Protein 0.67 mg/dL (0.00-5.00) Total Protein 6.7 g/dL (6.4-8.2) Albumin 3.4 g/dL (3.4-5.0) Globulin 3.3 Albumin/Globulin Ratio 1.030 Progress Progress This patient was given 10 mg of labetalol for her hypertension. Her blood pressures come down nicely to 140/82. Patient's had a CT scan done of her lumbar spine to make sure she did have a new compression fracture or something and she just has extensive arthritic changes and some spondylolysisWith some severely narrowed areas. She has multilevel arthritic changes. There are no new compression fractures.CBC was obtained to make sure she did not have an inflammatory or infectious process going on in her spine and CBC is normal with a white count of 6.8 H&H are 13.3/40.6 and platelets are normal at 213,000. Chemistries : All within normal limits except for BUN slightly elevated at 23 consistent with just being a little bit dehydrated. Patient has not ate or drank anything yet today. Her CRP was also negative at 0.67. ER DEPART Departure Time of Disposition: 14:56 Disposition: 01 HOME, SELF-CARE Impression: Primary Impression: Low back pain Additional Impression: Hypertension Condition: Stable Referrals: ROSHAN LOPES (PCP) PRIMARY CARE PROVIDER Comments Tramadol 50 mg tabs 1 p.o. 3 times daily as needed pain. We will give patient 30 tabs with no refills. Patient was instructed to only use it when she absolutely had to. This information was given to both her and her . Duration or Time Spent with Pa: 30m Problem Qualifiers VALENTINE LANDEROS MD May 21, 2020 13:39
[2020-05-21 13:40] LABS: BASOPHIL % 0.4 % (0.0-0.2); EOSINOPHIL # 0.1 10^3/uL (0.0-0.2); EOSINOPHIL % 1.3 % (0.0-5.0); LYMPHOCYTES # 3.21 10^3/uL1 (1.0-4.8); MEAN CORP HGB 38.3 pg (26-34); MONOCYTES # 0.7 10^3/uL (0.3-0.8); MONOCYTES % 8.8 % (5.0-12.0); NEUTROPHIL # 3.4 10^3/uL (1.8-7.7); NEUTROPHILS % 45.8 % (41.0-85.0); PLATELET COUNT 240 10^3/uL (150-400); RED CELL DISTRIBUTION WIDTH 16.1 % (11.5-14.5)
[2020-05-21 13:53] LABS: CALCIUM 9.8 mg/dL (8.4-10.5)
[2020-05-21] MEDS ORDERED: TRANDATE IV ONE (13:55)
[2020-05-21 14:20] VITALS: BP 106/70
--- NOTE | 2020-05-21 14:35 | DIREP ---
PROCEDURE: CT SPINE LUMBAR W/O TECHNIQUE:Axial cuts were obtained through the lumbar spine. The images were viewed at bone settings. COMPARISON:[facility], CT, CT SPINE LUMBAR W/O, 05/31/2018, 10:16 AM. INDICATIONS:back pain,acute change in lumbar pain over past 2-3 days, "something popped FINDINGS: ALIGNMENT:5 mm anterolisthesis L3 on L4. 9 mm anterolisthesis L4 on L5. VERTEBRAE:No compression fracture. PARASPINAL AREA:Moderate size hiatal hernia. Dense aortic and major branch atherosclerotic calcifications. OTHER:No additional findings. LUMBAR DISC LEVELS T12-L1:Normal. L1-L2:Annular bulge extending in the floor of the neural foramina producing mild narrowing. No central canal stenosis. L2-L3:Annular bulge extending in the floor of the neural foramina producing mild narrowing. No central canal stenosis. L3-L4:Anterolisthesis 5 mm (previously 3 mm). Moderate facet arthropathy. Mild to moderate spinal stenosis not well assessed by CT. Mild neural foraminal narrowing. L4-L5:Anterolisthesis 9 mm unchanged. Moderate facet arthropathy. Moderate to severe spinal stenosis. Moderate facet arthropathy. Moderate bilateral neural foraminal narrowing. L5-S1:Annular bulge eccentric to the right producing moderate right and mild left neural foraminal narrowing. CONCLUSION: 1. Increased anterolisthesis of L3 on L4. 2. Stable 10 mm anterolisthesis of L4 on L5. 3. Lower lumbar spondylosis and listhesis combine to produce spinal stenosis at L3-4 and more severely at L4-5. 4. Neural foraminal narrowing moderate in severity at L4-5 and on the right at L5-S1. 5. No compression fracture. Dictated by: Tony Mcfarland M.D. on 05/21/2020 at 02:21 PM
[2020-05-21 15:10] VITALS: BP 140/82
== END 2020-05-21 15:15 | disposition home or self-care (01) ==
LOC: EDBD 13:14 → ER 13:14
DX: I10 Essential (primary) hypertension (principal); M54.5 Low back pain; G89.29 Other chronic pain; E78.00 Pure hypercholesterolemia, unspecified; J45.909 Unspecified asthma, uncomplicated; K21.9 Gastro-esophageal reflux disease without esophagitis; Z79.01 Long term (current) use of anticoagulants; Z79.52 Long term (current) use of systemic steroids; Z79.899 Other long term (current) drug therapy; Z88.1 Allergy status to other antibiotic agents; Z88.5 Allergy status to narcotic agent; Z90.710 Acquired absence of both cervix and uterus; Z95.0 Presence of cardiac pacemaker
CPT/HCPCS: 36415; 72131; 80053; 85025; 86140; 96374; 96375; 99284; J3010; J3490

== ENCOUNTER 2020-05-26 14:36 | Emergency (ER) | payer MEDICARE, OTHER ==
[~2020-05-26] VITALS: Ht 162.6 cm; Wt 54.4 kg
--- NOTE | 2020-05-26 14:41 | PCM.EKG ---
[facility] Test Date: 2020-05-26 Test Time: 14:34:20 Pat Name: JESSY PIZARRO Department: Room: Gender: F Delivery Table Operator: TREASURE : 1935 Requested By: LEOLA DORADO Order Number: [id number] Reading MD: Leola Dorado Measurements Intervals [place] Rate: 60 P: [place]: 180 QRS: 0 QRSD: 87 T: 143 QT: 402 QTc: 402 Interpretive Statements Atrial-paced complexes Probable LVH with secondary repol abnrm Compared to ECG 10/04/2019 13:16:48 No significant changes Electronically Signed On 05-26-2020 21:48:01 CDT by Leola Dorado Please click the below link to view image of tracing.
--- NOTE | 2020-05-26 14:43 | ER.PDOC ---
General Chief Complaint: Requesting Medical Care Stated Complaint: CHEST PAIN Time seen by MD: 14:40 Source: patient, EMS Exam Limitations: no limitations History of Present Illness Initial Comments patient presents with 2 weeks intermittent substernal chest pain. It is sharp and heavy. no radiation. Pain is worse with movement. Associated SOB, but no Nausea, diaphoresis or lightheadedness. EMS gave 324 ASA and 1 SL nitro. Her pain went form 10/10 to 3/10, but her SBP went from 130 to 90. BP has since improved. Her parts identification technician is Dr Nunez. She has pacemaker but no stents Allergies: Coded Allergies: chlorpheniramine (Verified Allergy, Mild, 05/24/16) hydrocodone (Verified Allergy, Mild, 05/24/16) moxifloxacin (Verified Allergy, Mild, 05/24/16) cefuroxime (Verified Allergy, Unknown, 05/27/19) clindamycin (Verified Allergy, Unknown, 05/27/19) guaifenesin (Verified Allergy, Unknown, 05/27/19) Home Meds Active Scripts Metoprolol Tartrate 50MG (LOPRESSER 50MG) 50 Mg Tablet, 100 MG PO BID for HYPERTENSION, #120 TAB 1 Refill Prov:SINCERE GUSTAFSON MD 05/30/19 Amiodarone Hcl (CORDARONE) 200 Mg Tablet, 200 MG PO BID, #60 TAB 1 Refill Prov:SINCERE GUSTAFSON MD 05/30/19 Docusate Sodium (COLACE) 100 Mg Capsule, 100 MG PO BID PRN for CONSTIPATION for 30 Days, #60 CAPSULE 0 Refills Prov:BIMAL RAINES MD 06/10/18 Reported Medications Azathioprine (AZASAN) 75 Mg Tablet, 50 MG PO BID, TAB 05/27/19 Rosuvastatin 20MG (CRESTOR 20MG) 20 Mg Tablet, 1 TAB PO DAILY, #30 TAB 5 Refills 05/27/19 Furosemide (FUROSEMIDE) 40 Mg Tablet, 1 TAB PO DAILY, #30 TAB 5 Refills 05/27/19 Apixaban (Eliquis) 2.5 Mg Tablet, 2.5 MG PO BID, TABLET 05/31/18 Pantoprazole Sodium (PANTOPRAZOLE SODIUM) 40 Mg Tablet.dr, 40 MG PO DAILY 05/24/16 Prednisone (PREDNISONE) 5 Mg Tab.ds.pk, 5 MG PO DAILY 01/24/16 Lisinopril (LISINOPRIL) 20 Mg Tablet, 10 MG PO DAILY, #30 TAB 5 Refills 01/24/16 Levothyroxine Sodium (LEVOTHYROXINE SODIUM) 50 Mcg Tablet, 1 TAB PO DAILY, #30 TAB 5 Refills 01/24/16 Past Medical History Medical History: asthma, GERD, high cholesterol, hypertension Surgical History: hysterectomy, pacemaker/ICD Social History Drug Use: none Reviewed Nursing Reviewed: Vital Signs, Abn. Noted, Nursing Assessment Constitutional: no symptoms reported EENTM: no symptoms reported Respiratory: see HPI Cardiovascular: see HPI Gastrointestinal: no symptoms reported Skin: no symptoms reported Psychiatric/Neurological: no symptoms reported All Other Systems: Reviewed and Negative Physical Exam General Appearance: Anxious, Mild Distress HEENT: PERRL/EOMI, Normal ENT Inspection Neck: Supple Respiratory: lungs clear, normal breath sounds, no respiratory distress Cardiovascular: Normal Peripheral Pulses, Regular Rate, Rhythm, No Edema (pacemaker) Gastrointestinal: Normal Bowel Sounds, Non Tender, Soft Extremities: Non-Tender, Normal Inspection Neurologic/Psychiatric: No Motor/Sensory Deficits, Alert, Normal Mood/Affect Skin: Normal Color, Warm/Dry Results/Orders Results/Orders Orders - LEOLA DORADO MD Cbc With Auto Diff (05/26/20 14:39) Comprehensive Metabolic Panel (05/26/20 14:39) Creatine Kinase (05/26/20 14:39) Creatine Kinase Mb (05/26/20 14:39) Troponin I (05/26/20 14:39) Probnp B-Type Operations Consultant (05/26/20 14:39) PT (05/26/20 14:39) Partial Thromboplastin Time. (05/26/20 14:39) Xr Chest 1v (05/26/20 14:39) Ekg-Routine (05/26/20 14:39) Saline Lock (05/26/20 14:39) Vital Signs Date Time Temp Pulse Resp B/P (MAP) Pulse Ox O2 Delivery O2 Flow Rate FiO2 05/26/20 15:01 98.3 60 18 128/84 (99) 99 Room Air 05/26/20 14:50 98.3 60 18 05/26/20 14:50 98.3 60 18 99 Laboratory Tests Test 05/26/20 14:40 White Blood Count 9.3 10^3/uL (4.5-11.0) Red Blood Count 3.37 10^6/uL (4.00-5.20) L Hemoglobin 13.0 g/dL (12.0-15.0) Hematocrit 38.2 % (36.0-46.0) Mean Corpuscular Volume 113.4 fL (78-100) H Mean Corpuscular Hemoglobin 38.6 pg (26-34) H Mean Corpuscular Hemoglobin Concent 34.0 g/dL (33-36.5) Red Cell Distribution Width 16.2 % (11.5-14.5) H Platelet Count 259 10^3/uL (150-400) Mean Platelet Volume 10.1 fL (7.8-11.0) Neutrophils (%) (Auto) 53.4 % (41.0-85.0) Lymphocytes (%) (Auto) 36.5 % (24.0-44.0) Monocytes (%) (Auto) 8.6 % (5.0-12.0) Neutrophils # (Auto) 5.0 10^3/uL (1.8-7.7) Lymphocytes # (Auto) 3.39 10^3/uL1 (1.0-4.8) Monocytes # (Auto) 0.8 10^3/uL (0.3-0.8) Absolute Immature Granulocyte (auto 0.03 10^3 u/L (0-2) Absolute Eosinophils (auto) 0.1 10^3/uL (0.0-0.2) Immature Granulocytes % 0.30 % (0.00-0.50) Eosinophils % 0.8 % (0.0-5.0) Basophils % 0.4 % (0.0-0.2) H Basophils # 0.0 10^3/uL (0.0-0.1) Prothrombin Time 10.6 SEC (9.3-11.3) Prothrombin Time INR (Non-Therap) 1.0 Activated Partial Thromboplast Time 21.6 SEC (24.67-30.72) Sodium Level 141 mmol/L (132-145) Potassium Level 4.0 mmol/L (3.6-5.2) Chloride Level 103.0 mmol/L (96-109) Carbon Dioxide Level 26.8 mmol/L (20.0-32) Anion Gap 15.2 Blood Urea Nitrogen 16 mg/dL (7-18) Creatinine 1.01 mg/dL (0.59-1.40) Estimated GFR () 63.3 (>/=60) Est GFR (CKD-EPI)(Non-Afr Estonian) 52.3 (>/=60) BUN/Creatinine Ratio 15.0 Glucose Level 143 mg/dL (70-110) H Calcium Level 10.1 mg/dL (8.4-10.5) Total Bilirubin 0.8 mg/dL (0.2-1.0) Aspartate Amino Transferase (AST) 24 U/L (0-35) Alanine Aminotransferase (ALT) 18 U/L (12-78) Alkaline Phosphatase 73 U/L (50-136) Total Creatine Kinase 23 U/L (26-192) L Creatine Kinase MB 0.6 ng/mL (0.5-3.6) Troponin I < 0.02 ng/mL (0.00-0.05) Pro-B-Type Natriuretic Peptide 1883 pg/mL (0-450) H Total Protein 6.3 g/dL (6.4-8.2) L Albumin 3.2 g/dL (3.4-5.0) L Globulin 3.1 Albumin/Globulin Ratio 1.032 Progress Progress troponin less than 0.02, other labs unremarkable. EKG with paced rhythm and St depressions. No cardiology coverage currently so will transfer to [place] Patient accepted to [facility] by Dr Sukumar CARVER DEPART Departure Time of Disposition: 15:25 Disposition: 05 DISCH/XFER OTHER Impression: Primary Impression: Chest pain Condition: Stable Referrals: ROSHAN LOPES (PCP) PRIMARY CARE PROVIDER Duration or Time Spent with Pa: 20 LEOLA DORADO MD May 26, 2020 14:43
[2020-05-26 14:48] LABS: BASOPHIL % 0.4 % (0.0-0.2); EOSINOPHIL # 0.1 10^3/uL (0.0-0.2); EOSINOPHIL % 0.8 % (0.0-5.0); LYMPHOCYTES # 3.39 10^3/uL1 (1.0-4.8); LYMPHOCYTES % 36.5 % (24.0-44.0); MEAN CORP HGB 38.6 pg (26-34); MONOCYTES # 0.8 10^3/uL (0.3-0.8); MONOCYTES % 8.6 % (5.0-12.0); NEUTROPHILS % 53.4 % (41.0-85.0); PLATELET COUNT 259 10^3/uL (150-400); RED CELL DISTRIBUTION WIDTH 16.2 % (11.5-14.5)
[2020-05-26 14:50] VITALS: BP 128/84
[2020-05-26 15:01] VITALS: BP 128/84
[2020-05-26 15:14] LABS: ALANINE AMINOTRANSFERASE(ML) 18 U/L (12-78); ALKALINE PHOSPHATASE 73 U/L (50-136); ASPARTATE AMINO TRANSFERASE 24 U/L (0-35); CALCIUM 10.1 mg/dL (8.4-10.5); CARBON DIOXIDE 26.8 mmol/L (20.0-32); GLUCOSE 143 mg/dL (70-110)
--- NOTE | 2020-05-26 15:19 | DIREP ---
PROCEDURE:CHEST 1 VIEW COMPARISON:[facility], CT, CT CHEST W/O, 10/04/2019, 01:22 PM. [facility], CR, XRAY CHEST SINGLE VW, 05/27/2019, 02:01 AM. [facility], CR, XRAY CHEST SINGLE VW, 05/31/2018, 06:56 PM. INDICATIONS:CP FINDINGS: LUNGS/PLEURA:Shallow depth of inspiration. Mild linear scarring and/or atelectasis in the left mid lung and left lung base. Stable underlying chronic interstitial changes. No focal consolidation, pleural effusion, or pneumothorax. VASCULATURE:No pulmonary vascular congestion. CARDIAC:Stable borderline cardiomegaly. Stable multi lead left-sided pacemaker with bilateral subclavian leads. MEDIASTINUM:Stable moderate to large retrocardiac hiatal hernia. Stable tortuous and calcified thoracic aorta. BONES:Mild osteopenia. Stable cerclage wires and orthopedic screws transfixing the left proximal humerus. Stable degenerative changes involving the shoulders and thoracic spine. No acute abnormality. OTHER:Negative. CONCLUSION: 1. Mild scarring and/or atelectasis in the left mid lung and left lung base with stable underlying chronic interstitial changes. The lungs are otherwise clear. 2. Stable mild cardiomegaly with a multi lead pacemaker. No pulmonary vascular congestion. 3. Stable moderate to large hiatal hernia. 4. Additional chronic findings, as above. Dictated by: Michi Jaquez MD on 05/26/2020 at 03:12 PM
[2020-05-26 16:00] VITALS: BP 128/84
--- NOTE | 2020-05-26 16:15 | NUR ---
EMS REPORT REPORT GIVEN TO [facility]. VERBALIZED UNDERSTANDING AND DENIES FURTHER QUESTIONS.
--- NOTE | 2020-05-26 16:24 | NUR ---
PATIENT OFF ER UNIT PATIENT TAKEN OUT OF ER UNIT WITH [facility]. NO S/S OF DISTRESS NOTED. VITALS STABLE.
--- NOTE | 2020-05-26 16:30 | NUR ---
REPORT REPORT CALLED TO LUNA CRONIN @ [facility]. VERBALIZED UNDERSTANDING AND DENIES FURTHER QUESTIONS.
== END 2020-05-26 16:24 | disposition short-term general hospital (02) ==
LOC: ER 14:40
DX: R07.2 Precordial pain (principal); E78.00 Pure hypercholesterolemia, unspecified; I10 Essential (primary) hypertension; J45.909 Unspecified asthma, uncomplicated; K21.9 Gastro-esophageal reflux disease without esophagitis; Z79.01 Long term (current) use of anticoagulants; Z79.52 Long term (current) use of systemic steroids; Z79.899 Other long term (current) drug therapy; Z88.1 Allergy status to other antibiotic agents; Z88.5 Allergy status to narcotic agent; Z90.710 Acquired absence of both cervix and uterus; Z95.0 Presence of cardiac pacemaker
CPT/HCPCS: 36415; 71045; 80053; 82550; 82553; 83880; 84484; 85025; 85610; 85730; 93005; 99285

== ENCOUNTER 2020-05-30 09:55 | Emergency (ER) | payer MEDICARE, OTHER ==
[2020-05-30 09:55] VITALS: BP 168/118
--- NOTE | 2020-05-30 10:10 | PCM.EKG ---
[facility] Test Date: 2020-05-30 Test Time: 10:07:23 Pat Name: JESSY PIZARRO Department: Room: Gender: F Assembly Lead Person: KARINA : 1935 Requested By: BRANDAN TEMPLE Order Number: [id number] Reading MD: Brandan TEMPLE Measurements Intervals [place] Rate: 62 P: 0 MA: 59 QRS: 2 QRSD: 104 T: 92 QT: 441 QTc: 448 Interpretive Statements Sinus rhythm Short MA interval Biatrial enlargement LVH with secondary repolarization abnormality Compared to ECG 05/26/2020 14:34:20 Short MA interval now present Atrial abnormality now present Atrial-paced complex(es) or rhythm no longer present Electronically Signed On 06-01-2020 11:51:41 CDT by Brandan TEMPLE Please click the below link to view image of tracing.
--- NOTE | 2020-05-30 10:11 | ER.PDOC ---
General Chief Complaint: Requesting Medical Care Stated Complaint: CHRONIC PAIN TRAVEL OUT OF US: No Time seen by MD: 10:08 Source: patient History of Present Illness Initial Comments Patient brought in by EMS for chronic pain. Family has agreed for her to go to hospice. They want me to do some blood work to make sure patient is not having any serious event at this time and if it is unremarkable, patient will be going to hospice. Severity: moderate Associated Symptoms: chest pain Allergies: Coded Allergies: chlorpheniramine (Verified Allergy, Mild, 05/24/16) hydrocodone (Verified Allergy, Mild, 05/24/16) moxifloxacin (Verified Allergy, Mild, 05/24/16) cefuroxime (Verified Allergy, Unknown, 05/27/19) clindamycin (Verified Allergy, Unknown, 05/27/19) guaifenesin (Verified Allergy, Unknown, 05/27/19) Home Meds Active Scripts Metoprolol Tartrate 50MG (LOPRESSER 50MG) 50 Mg Tablet, 100 MG PO BID for HYPERTENSION, #120 TAB 1 Refill Prov:SINCERE GUSTAFSON MD 05/30/19 Amiodarone Hcl (CORDARONE) 200 Mg Tablet, 200 MG PO BID, #60 TAB 1 Refill Prov:SINCERE GUSTAFSON MD 05/30/19 Docusate Sodium (COLACE) 100 Mg Capsule, 100 MG PO BID PRN for CONSTIPATION for 30 Days, #60 CAPSULE 0 Refills Prov:BIMAL RAINES MD 06/10/18 Reported Medications Azathioprine (AZASAN) 75 Mg Tablet, 50 MG PO BID, TAB 05/27/19 Rosuvastatin 20MG (CRESTOR 20MG) 20 Mg Tablet, 1 TAB PO DAILY, #30 TAB 5 Refills 05/27/19 Furosemide (FUROSEMIDE) 40 Mg Tablet, 1 TAB PO DAILY, #30 TAB 5 Refills 05/27/19 Apixaban (Eliquis) 2.5 Mg Tablet, 2.5 MG PO BID, TABLET 05/31/18 Pantoprazole Sodium (PANTOPRAZOLE SODIUM) 40 Mg Tablet.dr, 40 MG PO DAILY 05/24/16 Prednisone (PREDNISONE) 5 Mg Tab.ds.pk, 5 MG PO DAILY 01/24/16 Lisinopril (LISINOPRIL) 20 Mg Tablet, 10 MG PO DAILY, #30 TAB 5 Refills 01/24/16 Levothyroxine Sodium (LEVOTHYROXINE SODIUM) 50 Mcg Tablet, 1 TAB PO DAILY, #30 TAB 5 Refills 01/24/16 Past Medical History Medical History: congestive heart failure, hypertension, other Surgical History: hysterectomy, pacemaker/ICD Family History Significant Family History: no pertinent family hx Social History Smoking: non-smoker Drug Use: none Review of Systems Constitutional: no symptoms reported EENTM: no symptoms reported Respiratory: no symptoms reported Cardiovascular: see HPI Gastrointestinal: no symptoms reported Genitourinary: no symptoms reported All Other Systems: Reviewed and Negative Physical Exam General Appearance: No Apparent Distress, WD/WN EENT: eyes nml inspection, nml ENT inspection Neck: Non-Tender, Full Range of Motion, Supple, Normal Inspection Respiratory: chest non-tender, lungs clear, normal breath sounds, no respiratory distress CVS: reg rate & rhythm, no gallop, pulses nml, nml capillary refill, murmur Gastrointestinal: Normal Bowel Sounds, No Organomegaly, No Pulsatile Mass, Non Tender Back: Normal Inspection, No CVA Tenderness Extremities: Normal Range of Motion Neurologic/Psychiatric: receiving associate II-XII NML as Tested Skin: Normal Color Results/Orders Results/Orders Orders - BRANDAN TEMPLE MD Cbc With Auto Diff (05/30/20 10:04) Comprehensive Metabolic Panel (05/30/20 10:04) Creatine Kinase (05/30/20 10:04) Creatine Kinase Mb (05/30/20 10:04) Troponin I (05/30/20 10:04) Probnp B-Type Reading Assistant (05/30/20 10:04) PT (05/30/20 10:04) Partial Thromboplastin Time. (05/30/20 10:04) Xr Chest 1v (05/30/20 10:04) Ekg-Routine (05/30/20 10:04) Vital Signs Date Time Temp Pulse Resp B/P (MAP) Pulse Ox O2 Delivery O2 Flow Rate FiO2 05/30/20 09:55 97.8 60 12 05/30/20 09:55 97.8 60 12 168/118 (135) 91 Room Air 05/30/20 09:55 97.8 60 12 91 Laboratory Tests Test 05/30/20 10:15 White Blood Count 10.9 10^3/uL (4.5-11.0) Red Blood Count 3.63 10^6/uL (4.00-5.20) L Hemoglobin 13.9 g/dL (12.0-15.0) Hematocrit 41.2 % (36.0-46.0) Mean Corpuscular Volume 113.5 fL (78-100) H Mean Corpuscular Hemoglobin 38.3 pg (26-34) H Mean Corpuscular Hemoglobin Concent 33.7 g/dL (33-36.5) Red Cell Distribution Width 16.6 % (11.5-14.5) H Platelet Count 255 10^3/uL (150-400) Mean Platelet Volume 10.1 fL (7.8-11.0) Neutrophils (%) (Auto) 65.8 % (41.0-85.0) Lymphocytes (%) (Auto) 24.3 % (24.0-44.0) Monocytes (%) (Auto) 8.6 % (5.0-12.0) Neutrophils # (Auto) 7.2 10^3/uL (1.8-7.7) Lymphocytes # (Auto) 2.64 10^3/uL1 (1.0-4.8) Monocytes # (Auto) 0.9 10^3/uL (0.3-0.8) H Absolute Immature Granulocyte (auto 0.05 10^3 u/L (0-2) Absolute Eosinophils (auto) 0.1 10^3/uL (0.0-0.2) Immature Granulocytes % 0.50 % (0.00-0.50) Eosinophils % 0.6 % (0.0-5.0) Basophils % 0.2 % (0.0-0.2) Basophils # 0.0 10^3/uL (0.0-0.1) Prothrombin Time 10.6 SEC (9.3-11.3) Prothrombin Time INR (Non-Therap) 1.0 Activated Partial Thromboplast Time 24.5 SEC (24.67-30.72) Sodium Level 137 mmol/L (132-145) Potassium Level 5.0 mmol/L (3.6-5.2) Chloride Level 102.0 mmol/L (96-109) Carbon Dioxide Level 25.1 mmol/L (20.0-32) Anion Gap 14.9 Blood Urea Nitrogen 23 mg/dL (7-18) H Creatinine 1.14 mg/dL (0.59-1.40) Estimated GFR () 55.1 (>/=60) Est GFR (CKD-EPI)(Non-Afr Icelandic) 45.5 (>/=60) BUN/Creatinine Ratio 20.0 Glucose Level 88 mg/dL (70-110) Calcium Level 10.0 mg/dL (8.4-10.5) Total Bilirubin 1.0 mg/dL (0.2-1.0) Aspartate Amino Transferase (AST) 29 U/L (0-35) Alanine Aminotransferase (ALT) 27 U/L (12-78) Alkaline Phosphatase 88 U/L (50-136) Total Creatine Kinase 31 U/L (26-192) Creatine Kinase MB 0.6 ng/mL (0.5-3.6) Troponin I < 0.02 ng/mL (0.00-0.05) Pro-B-Type Natriuretic Peptide 1232 pg/mL (0-450) H Total Protein 6.9 g/dL (6.4-8.2) Albumin 3.4 g/dL (3.4-5.0) Globulin 3.5 Albumin/Globulin Ratio 0.971 Progress Progress CBC is normal. Electrolytes are also normal. Cardiac enzymes are normal. Patient has chronic pain and family has decided that she needs to be in hospice. Hospice will be coming later today to follow-up with patient at home. Patient be discharged home. EKG/XRAY/CT/US EKG: NSR, LVH EKG Comments: HR 62, normal P axis ER DEPART Departure Time of Disposition: 11:20 Disposition: 01 HOME, SELF-CARE Impression: Primary Impression: Chronic pain Condition: Stable Referrals: ROSHAN LOPES (PCP) PRIMARY CARE PROVIDER Additional Instructions: F/U with Hospice Return to ED if any concerns Duration or Time Spent with Pa: 60 min Problem Qualifiers Primary Impression: Chronic pain Chronic pain type: chronic pain syndrome Qualified Codes: G89.4 - Chronic pain syndrome BRANDAN TEMPLE MD May 30, 2020 10:11
[2020-05-30 10:22] LABS: BASOPHIL % 0.2 % (0.0-0.2); EOSINOPHIL # 0.1 10^3/uL (0.0-0.2); EOSINOPHIL % 0.6 % (0.0-5.0); LYMPHOCYTES # 2.64 10^3/uL1 (1.0-4.8); LYMPHOCYTES % 24.3 % (24.0-44.0); MEAN CORP HGB 38.3 pg (26-34); MONOCYTES # 0.9 10^3/uL (0.3-0.8); MONOCYTES % 8.6 % (5.0-12.0); NEUTROPHIL # 7.2 10^3/uL (1.8-7.7); NEUTROPHILS % 65.8 % (41.0-85.0); PLATELET COUNT 255 10^3/uL (150-400); RED CELL DISTRIBUTION WIDTH 16.6 % (11.5-14.5)
[2020-05-30 10:49] LABS: ALANINE AMINOTRANSFERASE(ML) 27 U/L (12-78); ALKALINE PHOSPHATASE 88 U/L (50-136); ASPARTATE AMINO TRANSFERASE 29 U/L (0-35); CARBON DIOXIDE 25.1 mmol/L (20.0-32); GLUCOSE 88 mg/dL (70-110)
--- NOTE | 2020-05-30 11:08 | DIREP ---
PROCEDURE:CHEST 1 VIEW COMPARISON:[facility], CR, XRAY CHEST SINGLE VW, 05/26/2020, 02:34 PM. 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 No definite acute infiltrates. No effusions. VASCULATURE:Normal. Unremarkable pulmonary vasculature. CARDIAC:Mild cardiomegaly with multi lead pacemaker through the right and left subclavian veins. Calcified mitral annulus. MEDIASTINUM:Large hiatal hernia. BONES:Old postoperative changes in the proximal left humerus. Degenerative changes in the left shoulder and thoracic spine. OTHER:Negative. CONCLUSION:No acute cardiopulmonary disease. Cardiomegaly with right and left subclavian pacer leads. Large hiatal hernia. Degenerative and postoperative changes in the left shoulder. The chest is unchanged from the previous study dated March 28 2020. Dictated by: Tylor Willis M.D. on 05/30/2020 at 11:02 AM
[2020-05-30 11:19] VITALS: BP 158/108
[2020-05-30] MEDS ORDERED: MORPHINE SULFATE ONE (11:19)
[2020-05-30] MEDS: MORPHINE SULFATE IM STA (11:21)
--- NOTE | 2020-05-30 11:34 | NUR ---
dc PT TAKEN BY EMS VIA STRETCHER TO HOME IN STABLE CONDITION. SPOUSE AT BEDSIDE.
== END 2020-05-30 11:35 | disposition home or self-care (01) ==
LOC: EDBD 09:55 → ER 09:55
DX: G89.4 Chronic pain syndrome (principal); I11.0 Hypertensive heart disease with heart failure; I50.9 Heart failure, unspecified; Z79.01 Long term (current) use of anticoagulants; Z79.52 Long term (current) use of systemic steroids; Z79.899 Other long term (current) drug therapy; Z88.1 Allergy status to other antibiotic agents; Z88.5 Allergy status to narcotic agent; Z90.710 Acquired absence of both cervix and uterus; Z95.0 Presence of cardiac pacemaker
CPT/HCPCS: 36415; 71045; 80053; 82550; 82553; 83880; 84484; 85025; 85610; 85730; 93005; 96372; 99285